=== PATIENT | male | born 1940 | race Caucasian/White ===

== ENCOUNTER 2017-04-04 16:16 | Inpatient (IN) | payer MEDICARE, OTHER ==
[~2017-04-04] VITALS: Ht 180.3 cm; Wt 69.2 kg
[2017-04-04] MEDS ORDERED: IV NORMAL SALINE 1000ML BAG 1,000 ML IV SCH (16:37)
[2017-04-04] MEDS ORDERED: ASPIRIN CHEWABLE 81 MG TABLET. PO ONE (16:45)
[2017-04-04] MEDS ORDERED: 0.9 % SODIUM CHLORIDE 10 ML DISP.SYRIN. IV PRN (16:45)
[2017-04-04 16:52] LABS: BASO # 0.1 x10^3/uL (0.0-0.2); BASO % 1 % (0-3); EOS % 1 % (0-3); HEMATOCRIT 36.9 % (39.0-53.0); HEMOGLOBIN 12.3 g/dL (13.0-17.5); LYMPH # 1.8 x10^3/uL (1.0-4.8); LYMPH % 28 % (24-48); MEAN CORPUSCULAR HEMOGLOBIN 29 pg (25-35); MEAN CORPUSCULAR HGB CONC 33 g/dL (31-37); MEAN CORPUSCULAR VOLUME 86 fL (79-100); MONO % 10 % (0-9); NEUT % 59 % (31-73); PLATELET COUNT 297 x10^3/uL (140-400); RED BLOOD COUNT 4.31 x10^6/uL (4.30-5.70); WHITE BLOOD COUNT 6.4 x10^3/uL (4.0-11.0)
--- NOTE | 2017-04-04 16:58 | RAD ---
INDICATION: sob on exertion COMPARISON: 11/03/2010 FINDINGS: Single view of chest obtained. Coarsened lung markings throughout the bilateral lungs. Possible nodular opacity in the right midlung versus overlap of structures. Post sternotomy changes with surgical clips seen at mediastinum. Degenerative changes shoulders. IMPRESSION: No definite focal airspace consolidation. Coarsened lung markings bilaterally. Would correlate for possible causes such as emphysema. Possible nodular opacity in the right perihilar region. Could be secondary to overlap of structures but a right lung nodule is not excluded. Follow-up CT could better evaluate.
--- NOTE | 2017-04-04 17:12 | RAD ---
INDICATION: generalized weakness COMPARISON: None. TECHNIQUE: Axial CT images obtained through the head without intravenous contrast. FINDINGS: No intracranial hemorrhage. No midline shift. Basal cisterns patents. Ventricles and sulci are globally prominent. Mays white differentiation is maintained without evidence of acute ischemia to large vessel territory. No acute osseous abnormality. Orbits and paranasal sinuses unremarkable. Scattered foci of low attenuation within the white matter. IMPRESSION: 1. No acute intracranial hemorrhage. 2. Scattered regions of low attenuation within the white matter. Non-specific in nature but frequently secondary to chronic small vessel ischemic disease. 3. Prominence of ventricles and sulci which is frequently secondary to age related volume loss. PQRS Compliance Statement: One or more of the following individualized dose reduction techniques were utilized for this examination: 1. Automated exposure control 2. Adjustment of the mA and/or kV according to patient size 3. Use of iterative reconstruction technique
[2017-04-04 17:18] LABS: CREATININE 1.4 mg/dL (0.7-1.3); GFR 49.3; POTASSIUM 4.1 mmol/L (3.5-5.1)
[2017-04-04 17:24] LABS: ALBUMIN 2.6 g/dL (3.4-5.0); DIRECT BILIRUBIN 0.1 mg/dL (0.0-0.2); MAGNESIUM 1.5 mg/dL (1.8-2.4); TOTAL BILIRUBIN 0.7 mg/dL (0.2-1.0); TOTAL PROTEIN 6.9 g/dL (6.4-8.2)
[2017-04-04 17:33] LABS: CKMB MASS 0.7 ng/mL (0.0-3.6)
--- NOTE | 2017-04-04 17:48 | PHYS DOC ---
Past Medical History Past Medical History: CAD, GERD, Hypertension Past Surgical History: Cholecystectomy, Coronary Bypass Surgery, Tonsillectomy , Other Additional Past Surgical Histo: Shoulder Alcohol Use: None Drug Use: None Adult General Chief Complaint Chief Complaint: DIZZY/LIGHT HEADED HPI HPI Is a pleasant 76 showed male with history of coronary artery disease, hypertension, hyperlipidemia who presents with increased shortness of breath exertional dyspnea is affected more last several days. Is been having decreased energy for last several weeks decreased appetite for the last several weeks as well with decreased oral intake. Son is presently going away for approximately 3 months and he feels that with this increased shortness of breath and increased weakness with inability care of himself. He is worried that this shortness of breath has made it so that he cannot even perform activities of daily living. He has chest tightness when he exerts himself. 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 He denies lower leg swelling, change in medications, night sweats, weight loss, other than the 5 pounds secondary to decreased oral intake. Review of Systems Review of Systems Constitutional: Denies fever or chills [] Eyes: Denies change in visual acuity, redness, or eye pain [] HENT: Denies nasal congestion or sore throat [] Respiratory: Denies cough or shortness of breath [] Cardiovascular: No additional information not addressed in HPI [] GI: Denies abdominal pain, nausea, vomiting, bloody stools or diarrhea [] : Denies dysuria or hematuria [] Musculoskeletal: Denies back pain or joint pain [] Integument: Denies rash or skin lesions [] Neurologic: Denies headache, focal weakness or sensory changes [] Endocrine: Denies polyuria or polydipsia [] Current Medications Current Medications Current Medications Medications (Trade) Dose Ordered Sig/Chari Start Time Stop Time Status Last Admin Dose Admin Aspirin (Children'S Aspirin) 324 mg 1X ONCE 04/04/17 16:45 04/04/17 16:46 DC 04/04/17 16:59 324 MG Sodium Chloride (Normal Saline Flush) 10 ml QSHIFT PRN 04/04/17 16:45 04/04/17 16:59 10 ML Allergies Allergies Allergies Coded Allergies Type Severity Reaction Last Updated Verified No Known Drug Allergies 12/7/15 No Physical Exam Physical Exam Constitutional: Well developed, well nourished, no acute distress, non-toxic appearance. [] HENT: Normocephalic, atraumatic, bilateral external ears normal, oropharynx moist, no oral exudates, nose normal. [] Eyes: PERRLA, EOMI, conjunctiva normal, no discharge. [] Neck: Normal range of motion, no tenderness, supple, no stridor. [] Cardiovascular:Heart rate regular rhythm, no murmur [] Lungs & Thorax: Bilateral breath sounds clear to auscultation [] Abdomen: Bowel sounds normal, soft, no tenderness, no masses, no pulsatile masses. [] Skin: Warm, dry, no erythema, no rash. [] Back: No tenderness, no CVA tenderness. [] Extremities: No tenderness, no cyanosis, no clubbing, ROM intact, no edema. [] Neurologic: Alert and oriented X 3, normal motor function, normal sensory function, no focal deficits noted. [] Psychologic: Affect normal, judgement normal, mood normal. [] Current Patient Data Vital Signs Vital Signs Date Time Temp Pulse Resp B/P (MAP) Pulse Ox O2 Delivery O2 Flow Rate FiO2 04/04/17 16:59 101 177/101 (126) 95 Room Air 04/04/17 16:20 98.4 18 98.4 Lab Values Laboratory Tests Test 04/04/17 16:30 White Blood Count 6.4 x10^3/uL (4.0-11.0) Red Blood Count 4.31 x10^6/uL (4.30-5.70) Hemoglobin 12.3 g/dL (13.0-17.5) L Hematocrit 36.9 % (39.0-53.0) L Mean Corpuscular Volume 86 fL (79-100) Mean Corpuscular Hemoglobin 29 pg (25-35) Mean Corpuscular Hemoglobin Concent 33 g/dL (31-37) Red Cell Distribution Width 14.0 % (11.5-14.5) Platelet Count 297 x10^3/uL (140-400) Neutrophils (%) (Auto) 59 % (31-73) Lymphocytes (%) (Auto) 28 % (24-48) Monocytes (%) (Auto) 10 % (0-9) H Eosinophils (%) (Auto) 1 % (0-3) Basophils (%) (Auto) 1 % (0-3) Neutrophils # (Auto) 3.8 x10^3uL (1.8-7.7) Lymphocytes # (Auto) 1.8 x10^3/uL (1.0-4.8) Monocytes # (Auto) 0.7 x10^3/uL (0.0-1.1) Eosinophils # (Auto) 0.1 x10^3/uL (0.0-0.7) Basophils # (Auto) 0.1 x10^3/uL (0.0-0.2) Sodium Level 143 mmol/L (136-145) Potassium Level 4.1 mmol/L (3.5-5.1) Chloride Level 105 mmol/L (98-107) Carbon Dioxide Level 27 mmol/L (21-32) Anion Gap 11 (6-14) Blood Urea Nitrogen 13 mg/dL (8-26) Creatinine 1.4 mg/dL (0.7-1.3) H Estimated GFR (Cockcroft-Gault) 49.3 Glucose Level 104 mg/dL (70-99) H Calcium Level 9.0 mg/dL (8.5-10.1) Magnesium Level 1.5 mg/dL (1.8-2.4) L Total Bilirubin 0.7 mg/dL (0.2-1.0) Direct Bilirubin 0.1 mg/dL (0.0-0.2) Aspartate Amino Transferase (AST) 24 U/L (15-37) Alanine Aminotransferase (ALT) 15 U/L (16-63) L Alkaline Phosphatase 117 U/L (46-116) H Creatine Kinase 53 U/L (39-308) Creatine Kinase MB (Mass) 0.7 ng/mL (0.0-3.6) Creatine Kinase MB Relative Index 1.3 % (0-4) Troponin I Quantitative < 0.017 ng/mL (0.000-0.055) AM-Afk-A-Type Natriuretic Peptide 2204 pg/mL (0-449) H Total Protein 6.9 g/dL (6.4-8.2) Albumin 2.6 g/dL (3.4-5.0) L Thyroid Stimulating Hormone (TSH) 3.258 uIU/mL (0.358-3.74) Laboratory Tests 04/04/17 16:30 Laboratory Tests 04/04/17 16:30 EKG EKG [] KG timed 4:30 PM 04/04/2017 demonstrates sinus tachycardia rate of 102 CO interval 182 QRS of 86 QTC of 439. There is incomplete right bundle mass block noted in V1 and V2 there is a Q-wave noted in anterior leads and V3 this is an abnormal EKG. Read by Dr. toribio Radiology/Procedures Radiology/Procedures [] Course & Med Decision Making Course & Med Decision Making Pertinent Labs and Imaging studies reviewed. (See chart for details) I reviewed nursing notes, vital signs and history and physical findings. Initially presentation was concerning for possible increasing angina and his equivalent of angina his increasing dyspnea on exertion with activities of daily living. He will have an EKG completed, troponin CMP, CBC, mag level, TSH level, urinalysis, chest x-ray completed. Time is now 5 PM patient's troponin is negative, EKG is unremarkable except for sinus tachycardia which is likely secondary to find the patient. Patient's BUN/ creatinine are 13 and 1.4 which are both mildly elevated. Patient exam patient did exhibit some dehydration based on dry mucous membranes and tachycardia. He was given IV fluids as you can note is his high blood pressure and tachycardia. Vital Signs Date Time Temp Pulse Resp B/P (MAP) Pulse Ox O2 Delivery O2 Flow Rate FiO2 04/04/17 16:59 101 177/101 (126) 95 Room Air 04/04/17 16:20 98.4 18 98.4 Laboratory Tests Test 04/04/17 16:30 White Blood Count 6.4 x10^3/uL (4.0-11.0) Red Blood Count 4.31 x10^6/uL (4.30-5.70) Hemoglobin 12.3 g/dL (13.0-17.5) Hematocrit 36.9 % (39.0-53.0) Mean Corpuscular Volume 86 fL (79-100) Mean Corpuscular Hemoglobin 29 pg (25-35) Mean Corpuscular Hemoglobin Concent 33 g/dL (31-37) Red Cell Distribution Width 14.0 % (11.5-14.5) Platelet Count 297 x10^3/uL (140-400) Neutrophils (%) (Auto) 59 % (31-73) Lymphocytes (%) (Auto) 28 % (24-48) Monocytes (%) (Auto) 10 % (0-9) Eosinophils (%) (Auto) 1 % (0-3) Basophils (%) (Auto) 1 % (0-3) Neutrophils # (Auto) 3.8 x10^3uL (1.8-7.7) Lymphocytes # (Auto) 1.8 x10^3/uL (1.0-4.8) Monocytes # (Auto) 0.7 x10^3/uL (0.0-1.1) Eosinophils # (Auto) 0.1 x10^3/uL (0.0-0.7) Basophils # (Auto) 0.1 x10^3/uL (0.0-0.2) Sodium Level 143 mmol/L (136-145) Chloride Level 105 mmol/L (98-107) Carbon Dioxide Level 27 mmol/L (21-32) Anion Gap 11 (6-14) Blood Urea Nitrogen 13 mg/dL (8-26) Estimated GFR (Cockcroft-Gault) 49.3 Glucose Level 104 mg/dL (70-99) Calcium Level 9.0 mg/dL (8.5-10.1) Total Bilirubin 0.7 mg/dL (0.2-1.0) Direct Bilirubin 0.1 mg/dL (0.0-0.2) Aspartate Amino Transf (AST/SGOT) 24 U/L (15-37) Alkaline Phosphatase 117 U/L (46-116) Creatine Kinase 53 U/L (39-308) Creatine Kinase MB (Mass) 0.7 ng/mL (0.0-3.6) Creatine Kinase MB Relative Index 1.3 % (0-4) Troponin I Quantitative < 0.017 ng/mL (0.000-0.055) Total Protein 6.9 g/dL (6.4-8.2) Albumin 2.6 g/dL (3.4-5.0) [] I'm is now 5:53 PM patient had his habits done in 1996 his had no interventions no cardiology evaluation since that time. At this time I will push for admission to the hospital to rule out and rule out LA and cardiology evaluation. Setter Helper note: Internal Medicine Setter Helper called at of the service 5:53 pm Consult called back at Discussed the case I presented and they agreed with admission. Time of acceptance Dragon Disclaimer Dragon Disclaimer This electronic medical record was generated, in whole or in part, using a voice recognition dictation system. Departure Departure Impression: Primary Impression: Dyspnea Additional Impression: Weakness Disposition: ADMITTED INPATIENT Admitting Physician: Other Condition: GUARDED Referrals: DEMAR CHU Jr, MD (PCP) Problem Qualifiers STACIA TORIBIO MD Apr 04, 2017 17:48
[2017-04-04] MEDS ORDERED: fentaNYL PF VIAL 100 MCG/2 ML VIAL IV PRN (18:00)
[2017-04-04] MEDS ORDERED: ONDANSETRON PF 4 MG/2 ML VIAL. IV PRN (18:00)
[2017-04-04 18:14] LABS: BILIRUBIN,URINE NEGATIVE (NEG); GLUCOSE,URINE NEGATIVE (NEG); NITRITE,URINE NEGATIVE (NEG); PROTEIN,URINE NEGATIVE (NEG-TRACE); UROBILINOGEN,URINE 0.2 mg/dL (0.2 mg/dL)
[2017-04-04 18:35] LABS: BACTERIA,URINE MODERATE /HPF (0-FEW); RBC,URINE 0 /HPF (0-2); SQUAMOUS EPITHELIAL CELL,UR OCC /LPF; WBC,URINE >40 /HPF (0-4)
[2017-04-04 19:57] VITALS: BP 184/117
[2017-04-04] MEDS ORDERED: TAMS0.4C2 PO (20:50)
[2017-04-04] MEDS ORDERED: ASPI-482 PO (20:50)
[2017-04-04] MEDS ORDERED: LOSA50TA6 PO (20:50)
[2017-04-04] MEDS ORDERED: BUDE10.2 IH (20:50)
[2017-04-04] MEDS ORDERED: AMLO5TAB2 PO (20:50)
[2017-04-04] MEDS ORDERED: OXYB5TAB7 PO (20:50)
[2017-04-04] MEDS ORDERED: OMEP20TA8 PO (20:50)
[2017-04-04] MEDS ORDERED: IPRA4AER IH (20:50)
[2017-04-04] MEDS ORDERED: METO50TA2 PO (20:50)
[2017-04-04] MEDS ORDERED: FINA5TAB4 PO (20:50)
[2017-04-04] MEDS: IV NORMAL SALINE 1000ML BAG 1,000 ML IV SCH (21:02)
[2017-04-04] MEDS ORDERED: hydrALAZINE 20 MG/ML VIAL. IVP PRN (22:15)
[2017-04-04] MEDS ORDERED: NON FORMULARY ITEM (Ipratropium/Albuterol Sulfate (Combivent Respimat Inhal) 2 INH) IH PRN (22:15)
[2017-04-04] MEDS ORDERED: ALBUTEROL SULFATE 2.5 MG/3 ML NEBU. NEB PRN (22:30)
[2017-04-04 22:46] VITALS: BP 171/102
--- NOTE | 2017-04-04 23:03 | HP ---
ADMIT DATE: 04/04/2017 CHIEF COMPLAINT: Dizziness, dyspnea on exertion and generalized weakness. HISTORY OF PRESENT ILLNESS: The patient is a 76-year-old gentleman with past medical history of CAD, hypertension, hyperlipidemia as well as adult-onset asthma, who presented to the Emergency Room with decreased energy, easy fatigue as well as mildly worsened dyspnea on exertion. He specifically denies any chest pain, any cough, any fevers. He does have a recent history significant for C. diff colitis, for which he had seen his primary care physician at the beginning of the month. He had complained of watery diarrhea, foul smelling multiple times a day. He eventually was diagnosed with C. diff and started on antibiotics for 10 days. He completed his regimen about 1 week ago and actually has had fairly normal bowel movement since. However, he has been unable to eat properly since the beginning of the month, because of poor appetite. He denies any nausea. P.o. intake has been significantly decreased. He felt that he was probably dehydrated and therefore presented to the Emergency Room. PAST MEDICAL HISTORY: CAD status post CABG in 1996, hypertension and hyperlipidemia. FAMILY HISTORY: Noncontributory. SOCIAL HISTORY: Lives by himself, never smoked. No toxic habits. ALLERGIES: No known drug allergies. HOME MEDICATIONS: Reconciled with MAR. REVIEW OF SYSTEMS: Positive as per HPI. He denies any focal symptoms in rest of organ system review. PHYSICAL EXAMINATION: VITAL SIGNS: From today show blood pressure of 184/117, pulse rate at 90, respiratory rate at 18. He is afebrile. GENERAL: This is a 76-year-old well-nourished, well-developed gentleman, alert and oriented, in no acute distress. HEENT: Shows no scleral icterus. NECK: Supple. LUNGS: Fairly clear bilaterally. HEART: Mildly tachycardic. ABDOMEN: Has positive bowel sounds, soft, no tenderness to palpation in all 4 quadrants. EXTREMITIES: Show no edema. SKIN: Warm, soft and dry. LABORATORY DATA: CBC with WBC of 6.4, hemoglobin 12.3, platelets of 297. BUN and creatinine of 13 and 1.4. Normal electrolytes, normal LFTs. ProBNP at 2204. Negative troponin. TSH at 3.258. Urine was showing infection with wbc greater than 40. IMAGING STUDIES: A chest x-ray showing coarsened lung markings bilaterally, possible causes such as emphysema. ASSESSMENT AND PLAN: The patient is a 76-year-old gentleman with past medical history of coronary artery disease, who presenting to the Emergency Room with generalized weakness, possible dehydration and was found with hypertensive urgency. He is now admitted to the hospital for further workup. For his blood pressure, we will start hydralazine NATHAN to get this under control. His home medications will be continued. His proBNP is significantly elevated, possibly indicating congestive heart failure. He does have a history of coronary artery disease. We will obtain echocardiogram and cardiac consult. The patient has a recent history of clostridium difficile, which apparently has been treated sufficiently. He is no longer symptomatic. We will place on isolation. No further stool studies are indicated. Despite proBNP being elevated, there is no sign of fluid overload, on the contrary suspect he is dehydrated. We will gently rehydrate and monitor his chemistries closely. His electrolytes currently are within normal limits. The patient clearly has a urinary tract infection. We will await culture and start empiric ceftriaxone certainly could be the etiology of his generalized weakness as well. For prophylaxis, he will be started on heparin subQ. MARILEE BLAS MD DR: PHUONG/nts JOB#: [id number] / [id number] DEMAR Martins MD MTDLily
[2017-04-05] VITALS (7 sets, daily range): BP systolic 122–192; BP diastolic 68–110
--- NOTE | 2017-04-05 05:36 | ACF ---
Admission Forms Criteria HEART FAILURE: COMMON COMPLICATIONS (Place 'X' for any and all applicable criteria): Ongoing inpatient care may be indicated for heart failure with 1 or more of the following (1)(2)(3)(4)(5)(6)(7)(8): [ ]I. New-onset heart failure [ ]II. Acute cardiac ischemia causing or associated with failure [ ]III. Ongoing need for care for primary condition requiring frequent therapy adjustments because of changes in cardiac function (eg, drug dosage changes for drugs that are renally metabolized) [X]IV. Complications of heart failure, including 1 or more of the following: [ ]a) Hemodynamic instability [ ]b) Pericardial effusion [ ]c) Symptomatic pleural effusion [ ]d) Hypoxemia [ ]e) Tachypnea [X]f) Dyspnea [ ]g) Syncope [ ]h) Altered mental status [ ]i) Acute renal insufficiency that is severe (reduction of more than 50% in estimated glomerular filtration rate from baseline) or progressive reduction of more than 25% in estimated glomerular filtration rate from baseline, with creatinine continuing to rise) [ ]j) Debilitating anasarca (eg tissue breakdown with infection, inability to void due to edema) (E) [ ]k) Clinically significant metabolic abnormalities due to heart failure (eg, new-onset metabolic acidosis) Extended stay may be needed until ALL of the following are present (1)(3)(18)(41 )(55) [ ]a) Hemodynamic stability [ ]b) Stable and effective diuretic regimen established (or patient on stable dialysis regimen if in chronic renal failure) [ ]c) Volume status acceptable on oral medication [ ]d) Breathing comfortably at rest [ ]e) Saturation of arterial oxygen greater than 90% or at acceptable baseline [ ]f) Pulmonary edema absent or improved [ ]g) Peripheral or sacral edema absent or improved [ ]h) Renal function stable and manageable at a lower level of care [ ]i) Complications (eg, pleural effusion) resolved or manageable at a lower level of care [ ]g) Patient or caregiver has received written discharge instructions or educational material addressing activity level, diet, discharge medications, follow-up appointment, weight monitoring, and what to do if symptoms worsen.(25)(26) The original [employer] [facility] [employer] content created by Arvin [employer] has been revised. The portions of the content which have been revised are identified through the use of italic text, and [facility] has neither reviewed nor approved the modified material.All other unmodified content is copyright [facility]. Please see references footnoted in the original [facility] edition 2015 Admission Criteria Met?: Yes LORY JONES Apr 05, 2017 05:36
[2017-04-05] MEDS: IPRATRPIUM/ALBUTEROL 0.5/2.5MG 3 ML NEBU. NEB SCH ×4 (05:59→19:16)
[2017-04-05 06:00] LABS: BASO # 0.1 x10^3/uL (0.0-0.2); BASO % 1 % (0-3); EOS % 1 % (0-3); HEMOGLOBIN 12.7 g/dL (13.0-17.5); LYMPH # 2.2 x10^3/uL (1.0-4.8); LYMPH % 20 % (24-48); MEAN CORPUSCULAR HEMOGLOBIN 28 pg (25-35); MEAN CORPUSCULAR HGB CONC 33 g/dL (31-37); MEAN CORPUSCULAR VOLUME 87 fL (79-100); MONO % 9 % (0-9); NEUT % 69 % (31-73); PLATELET COUNT 298 x10^3/uL (140-400); RED BLOOD COUNT 4.51 x10^6/uL (4.30-5.70); RED CELL DISTRIBUTION WIDTH 14.1 % (11.5-14.5); WHITE BLOOD COUNT 10.9 x10^3/uL (4.0-11.0)
[2017-04-05] MEDS: BUDESONIDE 0.5 MG/2 ML NEBU. NEB SCH ×2 (06:00→19:16)
[2017-04-05 06:02] LABS: CALCIUM 8.2 mg/dL (8.5-10.1); CREATININE 1.4 mg/dL (0.7-1.3); GFR 49.3; POTASSIUM 3.9 mmol/L (3.5-5.1)
[2017-04-05] MEDS: IV NORMAL SALINE 1000ML BAG 1,000 ML IV SCH (07:22)
--- NOTE | 2017-04-05 07:32 | EKG ---
[facility] [address] [place] [address] Test Date: 2017-04-04 Test Time: 16:30:33 Pat Name: GEMMA CANO Department: Room: Gender: M Mottler Machine Feeder: : 1940 Requested By: STACIA TORIBIO Order Number: [id number] Reading MD: Measurements Intervals [place] Rate: 102 P: 10 SD: 182 QRS: 0 QRSD: 86 T: 25 QT: 334 QTc: 439 Interpretive Statements SINUS TACHYCARDIA LEFTWARD AXIS INCOMPLETE RIGHT BUNDLE BRANCH BLOCK QRS(T) CONTOUR ABNORMALITY CONSISTENT WITH ANTEROSEPTAL INFARCT AGE UNDETERMINED CONSISTENT WITH INFERIOR INFARCT PROBABLY OLD RI6.01 Unconfirmed report No previous ECG available for comparison
[2017-04-05] MEDS: PANTOPRAZOLE 40 MG TABLET.DR. PO SCH (08:27)
[2017-04-05] MEDS: FINASTERIDE 5 MG TABLET. PO SCH (08:27)
[2017-04-05] MEDS: OXYBUTYNIN CHLORIDE 5 MG TABLET PO SCH (08:28)
[2017-04-05] MEDS: METOPROLOL TART IMMED RELEASE 50 MG TABLET. PO SCH ×2 (08:28→22:12)
[2017-04-05] MEDS: LOSARTAN POTASSIUM 50 MG TABLET. PO SCH (08:28)
[2017-04-05] MEDS: TAMSULOSIN 0.4 MG CAP.ER.24H. PO SCH (08:29)
[2017-04-05] MEDS: amLODIPine BESYLATE 5 MG TABLET PO SCH (08:29)
[2017-04-05] MEDS: ASPIRIN ENTERIC COATED 81 MG TABLET.DR. PO SCH (08:29)
--- NOTE | 2017-04-05 08:38 | PDOC2 ---
DEEPALI SHARPE HOUSEHOLD MANAGER 04/05/17 0838: CARDIAC CONSULT DATE OF CONSULT Date of Consult DATE: 04/05/17 TIME: 08:35 REASON FOR CONSULT Reason for Consult: exertional dyspnea REFERRING PHYSICIAN Referring Physician: Rob SOURCE Source: Chart review, Patient HISTORY OF PRESENT ILLNESS HISTORY OF PRESENT ILLNESS This is a pleasant 76 yo male admitted for complains of SOA with exertion. Reports that about 3 weeks ago he was treated with antibiotics due to colitis. He finished his antibiotics but after that he has been feeling weak, more fatigue. No SOA with rest but increasingly with activity. His activity tolerance has decreased and he has been having intermittent nausea. His appetite has been decreased and because of these he has not been taking his medications routinely. In the last week he only has taken his medications for total of 3 days. Denies any CP, palpitations. He did fall yesterday in the bathroom but sustained no injury after turning around to fast he got a little dizzy. He has been having all these symptoms and it has not been improving so he decided to come in to ED. He does have CAD but has not followed up with any grey roll man for years and has been bascically managed by his PCP. 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 Endocrine: No pertinent hx Dermatology: No pertinent hx PAST SURGICAL HISTORY Past Surgical History: CABG (x4 in 1996), Hernia Repair (right inguinal) FAMILY HISTORY Family History: Coronary Artery Disease (father) SOCIAL HISTORY Smoke: No ALCOHOL: none Drugs: None Lives: Alone CURRENT MEDICATIONS CURRENT MEDICATIONS Current Medications Medications (Trade) Dose Ordered Sig/Chari Route PRN Reason Start Time Stop Time Status Last Admin Dose Admin Aspirin (Children'S Aspirin) 324 mg 1X ONCE PO 04/04/17 16:45 04/04/17 16:46 DC 04/04/17 16:59 Sodium Chloride 1,000 ml @ 1,000 mls/hr Q1H IV 04/04/17 16:37 04/04/17 17:36 DC 04/04/17 16:59 Sodium Chloride (Normal Saline Flush) 10 ml QSHIFT PRN IV AFTER MEDS AND BLOOD DRAWS 04/04/17 16:45 04/04/17 16:59 Sodium Chloride 1,000 ml @ 100 mls/hr Q10H IV 04/04/17 18:15 04/05/17 18:14 04/05/17 07:22 Amlodipine Besylate (Norvasc) 5 mg DAILY PO 04/05/17 09:00 04/05/17 08:29 Aspirin (Ecotrin) 81 mg DAILY PO 04/05/17 09:00 04/05/17 08:29 Finasteride (Proscar) 5 mg DAILY PO 04/05/17 09:00 04/05/17 08:27 Losartan Potassium (Cozaar) 50 mg DAILY PO 04/05/17 09:00 04/05/17 08:28 Metoprolol Tartrate (Lopressor) 50 mg BID PO 04/05/17 09:00 04/05/17 08:28 Oxybutynin Chloride (Ditropan) 5 mg DAILY PO 04/05/17 09:00 04/05/17 08:28 Tamsulosin HCl (Flomax) 0.8 mg DAILY PO 04/05/17 09:00 04/05/17 08:29 Pantoprazole Sodium (Protonix) 40 mg DAILYAC PO 04/05/17 07:30 04/05/17 08:27 Hydralazine HCl (Apresoline) 10 mg PRN Q4HRS PRN IVP ELEVATED BP, SEE COMMENTS 04/04/17 22:15 04/05/17 04:32 Ceftriaxone Sodium 1 gm/ Sodium Chloride 50 ml @ 100 mls/hr Q24H IV 04/04/17 23:00 04/05/17 00:05 Albuterol/ Ipratropium (Duoneb) 3 ml RTQID NEB 04/05/17 08:00 04/05/17 05:59 Budesonide (Pulmicort) 0.5 mg RTBID NEB 04/05/17 08:00 04/05/17 06:00 ALLERGIES ALLERGIES: Coded Allergies: No Known Drug Allergies (Unverified , 08/21/15) ROS Review of System 14 point ROS evaluated with pertinent positives noted per HPI PHYSICAL EXAM General: Alert, Oriented X3, Cooperative, No acute distress HEENT: Atraumatic, Mucous membr. moist/pink Lungs: Other (faint crackles to bases) Heart: Regular rate (Sinus tach), Normal S1, Normal S2, Other (S4; systolic murmur to LLS border 3/6) Abdomen: Soft, Other (hyperactive bowel sounds to all quads) Extremities: No cyanosis, No edema Skin: No breakdown, No significant lesion Neuro: Normal speech, Sensation intact Psych/Mental Status: Mental status NL, Mood NL MUSCULOSKELETAL: Osteoarthritic changes both hands VITALS VITALS Vital Signs Date Time Temp Pulse Resp B/P (MAP) Pulse Ox O2 Delivery O2 Flow Rate FiO2 04/05/17 08:29 138 161/107 04/05/17 07:21 97.6 18 96 Room Air 97.6 LABS Lab: Laboratory Tests Test 04/04/17 16:30 04/04/17 18:00 04/04/17 21:00 04/05/17 04:30 White Blood Count 6.4 x10^3/uL (4.0-11.0) 10.9 x10^3/uL (4.0-11.0) Red Blood Count 4.31 x10^6/uL (4.30-5.70) 4.51 x10^6/uL (4.30-5.70) Hemoglobin 12.3 g/dL (13.0-17.5) 12.7 g/dL (13.0-17.5) Hematocrit 36.9 % (39.0-53.0) 39.0 % (39.0-53.0) Mean Corpuscular Volume 86 fL (79-100) 87 fL (79-100) Mean Corpuscular Hemoglobin 29 pg (25-35) 28 pg (25-35) Mean Corpuscular Hemoglobin Concent 33 g/dL (31-37) 33 g/dL (31-37) Red Cell Distribution Width 14.0 % (11.5-14.5) 14.1 % (11.5-14.5) Platelet Count 297 x10^3/uL (140-400) 298 x10^3/uL (140-400) Neutrophils (%) (Auto) 59 % (31-73) 69 % (31-73) Lymphocytes (%) (Auto) 28 % (24-48) 20 % (24-48) Monocytes (%) (Auto) 10 % (0-9) 9 % (0-9) Eosinophils (%) (Auto) 1 % (0-3) 1 % (0-3) Basophils (%) (Auto) 1 % (0-3) 1 % (0-3) Neutrophils # (Auto) 3.8 x10^3uL (1.8-7.7) 7.5 x10^3uL (1.8-7.7) Lymphocytes # (Auto) 1.8 x10^3/uL (1.0-4.8) 2.2 x10^3/uL (1.0-4.8) Monocytes # (Auto) 0.7 x10^3/uL (0.0-1.1) 1.0 x10^3/uL (0.0-1.1) Eosinophils # (Auto) 0.1 x10^3/uL (0.0-0.7) 0.1 x10^3/uL (0.0-0.7) Basophils # (Auto) 0.1 x10^3/uL (0.0-0.2) 0.1 x10^3/uL (0.0-0.2) Sodium Level 143 mmol/L (136-145) 149 mmol/L (136-145) Potassium Level 4.1 mmol/L (3.5-5.1) 3.9 mmol/L (3.5-5.1) Chloride Level 105 mmol/L (98-107) 108 mmol/L (98-107) Carbon Dioxide Level 27 mmol/L (21-32) 30 mmol/L (21-32) Anion Gap 11 (6-14) 11 (6-14) Blood Urea Nitrogen 13 mg/dL (8-26) 12 mg/dL (8-26) Creatinine 1.4 mg/dL (0.7-1.3) 1.4 mg/dL (0.7-1.3) Estimated GFR (Cockcroft-Gault) 49.3 49.3 Glucose Level 104 mg/dL (70-99) 94 mg/dL (70-99) Calcium Level 9.0 mg/dL (8.5-10.1) 8.2 mg/dL (8.5-10.1) Magnesium Level 1.5 mg/dL (1.8-2.4) Total Bilirubin 0.7 mg/dL (0.2-1.0) Direct Bilirubin 0.1 mg/dL (0.0-0.2) Aspartate Amino Transf (AST/SGOT) 24 U/L (15-37) Alanine Aminotransferase (ALT/SGPT) 15 U/L (16-63) Alkaline Phosphatase 117 U/L (46-116) Creatine Kinase 53 U/L (39-308) Creatine Kinase MB (Mass) 0.7 ng/mL (0.0-3.6) Creatine Kinase MB Relative Index 1.3 % (0-4) Troponin I Quantitative < 0.017 ng/mL (0.000-0.055) < 0.017 ng/mL (0.000-0.055) GF-Law-U-Type Natriuretic Peptide 2204 pg/mL (0-449) Total Protein 6.9 g/dL (6.4-8.2) Albumin 2.6 g/dL (3.4-5.0) Thyroid Stimulating Hormone (TSH) 3.258 uIU/mL (0.358-3.74) Urine Collection Type Unknown Urine Color Yellow Urine Clarity Cloudy Urine pH 6.0 Urine Specific [place] <=1.005 Urine Protein Negative mg/dL (NEG-TRACE) Urine Glucose (UA) Negative mg/dL (NEG) Urine Ketones (Stick) Negative mg/dL (NEG) Urine Blood Trace (NEG) Urine Nitrite Negative (NEG) Urine Bilirubin Negative (NEG) Urine Urobilinogen Dipstick 0.2 mg/dL (0.2 mg/dL) Urine Leukocyte Esterase Large (NEG) Urine RBC 0 /HPF (0-2) Urine WBC >40 /HPF (0-4) Urine Squamous Epithelial Cells Occ /LPF Urine Bacteria Moderate /HPF (0-FEW) Test 04/05/17 05:55 Troponin I Quantitative 0.021 ng/mL (0.000-0.055) ASSESSMENT/PLAN ASSESSMENT/PLAN 1. Exertional dyspnea/fatigue: multifactorial 2. Accelerated HTN: due to missed meds 3. COPD: appears to be occupational related 4. BPH with possible UTI 5. Recent colitis 6. GERD 7. CAD: CABG x4 1996. No cardiac w/u since then. 8. Nontraumatic mechanical fall: possible BPPV Recommendations 1. TTE tomorrow. Monitor rhythm. Will consider MPI once nausea is better 2. Resume home BP meds including BB. Labetolol IV PRN. 3. Replace Mg if low 4. Lipid panel. Problems: DRAKE FINK MD 04/05/17 1357: CARDIAC CONSULT ALLERGIES ALLERGIES: Coded Allergies: No Known Drug Allergies (Unverified , 08/21/15) ASSESSMENT/PLAN ASSESSMENT/PLAN Pt. seen and examined. Agree with above PET SITTER Note. Normal cardiac exam. Presenting with exertional dyspnea. DDx is broad. Remote bypass, no assessment since then plan for MPI tomorrow if GI issues stable. Thanks for consult. Problems: DEEPALI SHARPE APRN Apr 05, 2017 08:38 DRAKE FINK MD Apr 05, 2017 13:57
[2017-04-05] MEDS ORDERED: NON FORMULARY ITEM (Budesonide/Formoterol Fumarate (Symbicort 160-4.5 Mcg Inhaler) 2 PUFF) IH SCH (09:00)
[2017-04-05 09:24] LABS: CHOLESTEROL/HDL RATIO 3.2; MAGNESIUM 1.6 mg/dL (1.8-2.4)
[2017-04-05] MEDS ORDERED: MAGNESIUM SULFATE 2GM 50 ML IV ONE (11:00)
--- NOTE | 2017-04-05 11:06 | EKG ---
[facility] [address] [place] [address] Test Date: 2017-04-05 Test Time: 09:57:27 Pat Name: GEMMA CANO Department: Room: [facility] Gender: M Contact Acid Plant Operator: LEILA : 1940 Requested By: DEEPALI SHARPE Order Number: [id number] Reading MD: Elio Giles Measurements Intervals [place] Rate: 99 P: 31 CA: 182 QRS: -5 QRSD: 86 T: 34 QT: 350 QTc: 455 Interpretive Statements SINUS RHYTHM POSSIBLE PRIOR INFERIOR INFARCT Electronically Signed On 04-10-2017 14:36:52 CDT by Elio Giles
--- NOTE | 2017-04-05 13:26 | PDOC ---
PROGRESS NOTES Chief Complaint Chief Complaint Fatigue, malaise Exertional dyspnea ASSESSMENT AND PLAN: 1. Gen weakness: UTI and dehydration. 2. HTN urgency: much better controlled this AM. cont home meds 3. Exertional dyspnea: poss cardiac, given PMH. appreciate cardiology service input: planned echo in AM. emphysematous changes on CXR in never-smoker: ?environmental vs antitrypsin deficiency. cont inhalers 4. CAD: Hx CABG in 1996. no acute issues. cont home meds 5. Infectious colitis: prob C.diff. completed Abx with resolution of sx. remains on isolation in hospital 6. Dehydration: gentle IVF 7. Hypomagnesemia: replete 8. CKD3: creat stable. monitor 9. UTI: on empiric ceftriax. awaiting cultures 10. GERD: on PPI 11. History of Present Illness History of Present Illness appetite still poor, but feels better overall. no CP Vitals Vitals Vital Signs Date Time Temp Pulse Resp B/P (MAP) Pulse Ox O2 Delivery O2 Flow Rate FiO2 04/05/17 11:39 95 Room Air 04/05/17 11:31 97.6 96 18 133/77 (95) 97.6 Physical Exam General: Alert, Oriented X3, Cooperative, No acute distress Heart: Regular rate, Other (systolic murmur ) Abdomen: Soft, Other (hyperactive bowel sounds ) Extremities: No cyanosis, No edema Skin: No breakdown, No significant lesion Labs LABS Laboratory Tests Test 04/04/17 16:30 04/04/17 18:00 04/04/17 21:00 04/05/17 04:30 White Blood Count 6.4 x10^3/uL (4.0-11.0) 10.9 x10^3/uL (4.0-11.0) Red Blood Count 4.31 x10^6/uL (4.30-5.70) 4.51 x10^6/uL (4.30-5.70) Hemoglobin 12.3 g/dL (13.0-17.5) 12.7 g/dL (13.0-17.5) Hematocrit 36.9 % (39.0-53.0) 39.0 % (39.0-53.0) Mean Corpuscular Volume 86 fL (79-100) 87 fL (79-100) Mean Corpuscular Hemoglobin 29 pg (25-35) 28 pg (25-35) Mean Corpuscular Hemoglobin Concent 33 g/dL (31-37) 33 g/dL (31-37) Red Cell Distribution Width 14.0 % (11.5-14.5) 14.1 % (11.5-14.5) Platelet Count 297 x10^3/uL (140-400) 298 x10^3/uL (140-400) Neutrophils (%) (Auto) 59 % (31-73) 69 % (31-73) Lymphocytes (%) (Auto) 28 % (24-48) 20 % (24-48) Monocytes (%) (Auto) 10 % (0-9) 9 % (0-9) Eosinophils (%) (Auto) 1 % (0-3) 1 % (0-3) Basophils (%) (Auto) 1 % (0-3) 1 % (0-3) Neutrophils # (Auto) 3.8 x10^3uL (1.8-7.7) 7.5 x10^3uL (1.8-7.7) Lymphocytes # (Auto) 1.8 x10^3/uL (1.0-4.8) 2.2 x10^3/uL (1.0-4.8) Monocytes # (Auto) 0.7 x10^3/uL (0.0-1.1) 1.0 x10^3/uL (0.0-1.1) Eosinophils # (Auto) 0.1 x10^3/uL (0.0-0.7) 0.1 x10^3/uL (0.0-0.7) Basophils # (Auto) 0.1 x10^3/uL (0.0-0.2) 0.1 x10^3/uL (0.0-0.2) Sodium Level 143 mmol/L (136-145) 149 mmol/L (136-145) Potassium Level 4.1 mmol/L (3.5-5.1) 3.9 mmol/L (3.5-5.1) Chloride Level 105 mmol/L (98-107) 108 mmol/L (98-107) Carbon Dioxide Level 27 mmol/L (21-32) 30 mmol/L (21-32) Anion Gap 11 (6-14) 11 (6-14) Blood Urea Nitrogen 13 mg/dL (8-26) 12 mg/dL (8-26) Creatinine 1.4 mg/dL (0.7-1.3) 1.4 mg/dL (0.7-1.3) Estimated GFR (Cockcroft-Gault) 49.3 49.3 Glucose Level 104 mg/dL (70-99) 94 mg/dL (70-99) Calcium Level 9.0 mg/dL (8.5-10.1) 8.2 mg/dL (8.5-10.1) Magnesium Level 1.5 mg/dL (1.8-2.4) 1.6 mg/dL (1.8-2.4) Total Bilirubin 0.7 mg/dL (0.2-1.0) Direct Bilirubin 0.1 mg/dL (0.0-0.2) Aspartate Amino Transf (AST/SGOT) 24 U/L (15-37) Alanine Aminotransferase (ALT/SGPT) 15 U/L (16-63) Alkaline Phosphatase 117 U/L (46-116) Creatine Kinase 53 U/L (39-308) Creatine Kinase MB (Mass) 0.7 ng/mL (0.0-3.6) Creatine Kinase MB Relative Index 1.3 % (0-4) Troponin I Quantitative < 0.017 ng/mL (0.000-0.055) < 0.017 ng/mL (0.000-0.055) QN-Llb-D-Type Natriuretic Peptide 2204 pg/mL (0-449) Total Protein 6.9 g/dL (6.4-8.2) Albumin 2.6 g/dL (3.4-5.0) Thyroid Stimulating Hormone (TSH) 3.258 uIU/mL (0.358-3.74) Urine Collection Type Unknown Urine Color Yellow Urine Clarity Cloudy Urine pH 6.0 Urine Specific [place] <=1.005 Urine Protein Negative mg/dL (NEG-TRACE) Urine Glucose (UA) Negative mg/dL (NEG) Urine Ketones (Stick) Negative mg/dL (NEG) Urine Blood Trace (NEG) Urine Nitrite Negative (NEG) Urine Bilirubin Negative (NEG) Urine Urobilinogen Dipstick 0.2 mg/dL (0.2 mg/dL) Urine Leukocyte Esterase Large (NEG) Urine RBC 0 /HPF (0-2) Urine WBC >40 /HPF (0-4) Urine Squamous Epithelial Cells Occ /LPF Urine Bacteria Moderate /HPF (0-FEW) Triglycerides Level 142 mg/dL (0-150) Cholesterol Level 126 mg/dL (0-200) LDL Cholesterol, Calculated 58 mg/dL (0-100) VLDL Cholesterol, Calculated 28 mg/dL (0-40) Non-HDL Cholesterol Calculated 86 mg/dL (0-129) HDL Cholesterol 40 mg/dL (40-60) Cholesterol/HDL Ratio 3.2 Test 04/05/17 05:55 Troponin I Quantitative 0.021 ng/mL (0.000-0.055) MARILEE BLAS MD Apr 05, 2017 13:26
[2017-04-05] MEDS: IV 1/2 NORMAL SALINE 1,000 ML IV SCH (13:58)
[2017-04-06 02:54] VITALS: BP 130/61
[2017-04-06 07:00] VITALS: BP 170/98
[2017-04-06 07:23] LABS: BASO # 0.1 x10^3/uL (0.0-0.2); BASO % 1 % (0-3); EOS % 2 % (0-3); HEMATOCRIT 33.8 % (39.0-53.0); HEMOGLOBIN 11.2 g/dL (13.0-17.5); LYMPH # 1.7 x10^3/uL (1.0-4.8); LYMPH % 28 % (24-48); MEAN CORPUSCULAR HEMOGLOBIN 29 pg (25-35); MEAN CORPUSCULAR HGB CONC 33 g/dL (31-37); MEAN CORPUSCULAR VOLUME 87 fL (79-100); MONO % 11 % (0-9); NEUT % 57 % (31-73); PLATELET COUNT 214 x10^3/uL (140-400); RED BLOOD COUNT 3.88 x10^6/uL (4.30-5.70); RED CELL DISTRIBUTION WIDTH 14.1 % (11.5-14.5); WHITE BLOOD COUNT 6.1 x10^3/uL (4.0-11.0)
[2017-04-06 07:47] LABS: CALCIUM 8.5 mg/dL (8.5-10.1); CREATININE 1.4 mg/dL (0.7-1.3); GFR 49.3; MAGNESIUM 1.9 mg/dL (1.8-2.4); POTASSIUM 3.4 mmol/L (3.5-5.1)
[2017-04-06] MEDS: IPRATRPIUM/ALBUTEROL 0.5/2.5MG 3 ML NEBU. NEB SCH ×3 (08:03→16:19)
[2017-04-06] MEDS: BUDESONIDE 0.5 MG/2 ML NEBU. NEB SCH (08:03)
[2017-04-06] MEDS: IV 1/2 NORMAL SALINE 1,000 ML IV SCH (09:15)
--- NOTE | 2017-04-06 09:20 | PDOC ---
PROGRESS NOTES Chief Complaint Chief Complaint Fatigue, malaise Exertional dyspnea ASSESSMENT AND PLAN: 1. Gen weakness: 2/2 UTI and dehydration. resolved. 2. HTN urgency: resolved. high BP this AM prior to meds, recheck in PM 3. Exertional dyspnea: poss cardiac, given PMH. awaiting MPI today emphysematous changes on CXR in never-smoker: ?environmental vs antitrypsin deficiency. cont inhalers 4. CAD: Hx CABG in 1996. no acute issues. cont home meds 5. Infectious colitis: prob C.diff. completed Abx with resolution of sx. remains on isolation in hospital 6. Dehydration: gentle IVF 7. Hypomagnesemia: resolved 8. CKD3: creat stable. monitor 9. UTI: on empiric ceftriax. awaiting cultures 10. GERD: on PPI 11. Dispo: home after MPI History of Present Illness History of Present Illness feels much better, energy is back, appetite not so much, but ok. eager to go home Vitals Vitals Vital Signs Date Time Temp Pulse Resp B/P (MAP) Pulse Ox O2 Delivery O2 Flow Rate FiO2 04/06/17 08:10 95 Room Air 04/06/17 07:00 95.7 101 20 170/98 (122) 95.7 Physical Exam General: Alert, Oriented X3, Cooperative, No acute distress Heart: Regular rate, Other (systolic murmur ) Lungs: Clear Abdomen: Soft, Other (hyperactive bowel sounds ) Extremities: No cyanosis, No edema Skin: No breakdown, No significant lesion Labs LABS Laboratory Tests Test 04/06/17 06:00 White Blood Count 6.1 x10^3/uL (4.0-11.0) Red Blood Count 3.88 x10^6/uL (4.30-5.70) Hemoglobin 11.2 g/dL (13.0-17.5) Hematocrit 33.8 % (39.0-53.0) Mean Corpuscular Volume 87 fL (79-100) Mean Corpuscular Hemoglobin 29 pg (25-35) Mean Corpuscular Hemoglobin Concent 33 g/dL (31-37) Red Cell Distribution Width 14.1 % (11.5-14.5) Platelet Count 214 x10^3/uL (140-400) Neutrophils (%) (Auto) 57 % (31-73) Lymphocytes (%) (Auto) 28 % (24-48) Monocytes (%) (Auto) 11 % (0-9) Eosinophils (%) (Auto) 2 % (0-3) Basophils (%) (Auto) 1 % (0-3) Neutrophils # (Auto) 3.5 x10^3uL (1.8-7.7) Lymphocytes # (Auto) 1.7 x10^3/uL (1.0-4.8) Monocytes # (Auto) 0.7 x10^3/uL (0.0-1.1) Eosinophils # (Auto) 0.1 x10^3/uL (0.0-0.7) Basophils # (Auto) 0.1 x10^3/uL (0.0-0.2) Sodium Level 144 mmol/L (136-145) Potassium Level 3.4 mmol/L (3.5-5.1) Chloride Level 107 mmol/L (98-107) Carbon Dioxide Level 27 mmol/L (21-32) Anion Gap 10 (6-14) Blood Urea Nitrogen 8 mg/dL (8-26) Creatinine 1.4 mg/dL (0.7-1.3) Estimated GFR (Cockcroft-Gault) 49.3 Glucose Level 88 mg/dL (70-99) Calcium Level 8.5 mg/dL (8.5-10.1) Magnesium Level 1.9 mg/dL (1.8-2.4) MARILEE BLAS MD Apr 06, 2017 09:20
[2017-04-06] MEDS ORDERED: REGADENOSON 0.4 MG/5 ML DISP.SYRIN. IV ONE (09:30)
[2017-04-06] MEDS: TAMSULOSIN 0.4 MG CAP.ER.24H. PO SCH (12:36)
[2017-04-06] MEDS: METOPROLOL TART IMMED RELEASE 50 MG TABLET. PO SCH (12:37)
[2017-04-06] MEDS: ASPIRIN ENTERIC COATED 81 MG TABLET.DR. PO SCH (12:37)
[2017-04-06] MEDS: LOSARTAN POTASSIUM 50 MG TABLET. PO SCH (12:38)
[2017-04-06] MEDS: PANTOPRAZOLE 40 MG TABLET.DR. PO SCH (12:38)
[2017-04-06] MEDS: OXYBUTYNIN CHLORIDE 5 MG TABLET PO SCH (12:39)
[2017-04-06] MEDS: amLODIPine BESYLATE 5 MG TABLET PO SCH (12:39)
[2017-04-06] MEDS: FINASTERIDE 5 MG TABLET. PO SCH (12:39)
[2017-04-06 14:52] VITALS: BP 144/85
--- NOTE | 2017-04-07 08:09 | RAD ---
APPROVED REPORT Test Type: Pharmacological Stress Nurse/Tech: sulaiman heredia Test Indications: CAD, FATIGUE Cardiac History: HTN, CABG '97, SEE EHR Medications: SEE EHR Medical History: COPD, SEE EHR Resting ECG: SINUS TACHYCARDIA Resting Heart Rate: 117 bpm Resting Blood Pressure: 155/95mmHg Pretest Chest Pain: No chest pain Nurse/Tech Notes NO SIGNS OR REPIRATORY ISSUE, SINUS TACHYCARDIA UPON INITIAL EKG. PT WITH UE TREMORS, PT STATES HE IS NOT COLD. Consent: The procedure was explained to the patient in lay terms. Informed consent was witnessed. Uday eout was entered into [employer]. History and Stress Test performed by SOFIA Malhotra Pharm. Details Pharmacologic stress testing was performed using 0.4mg per 5ml of regadenoson given intravenously ove r 7-10 seconds. Stress Symptoms HEADACHE, BODY ACHE. POST EXERCISE Reason for Termination: Infusion complete Max HR: 132 bpm Max Blood Pressure: 155/95mmHg Chest Pain: No. Arrhythmia: No. ST Change: No. INTERPRETATION Stress EKG Conclusion: Sinus tachycardia. No significant ischemic changes. LV Perfusion There is a moderate sized, severe in intensity basal to mid inferior wall reversible defect suggestiv e of impaired perfusion reserve in the proximal to mid RCA. There is also note of transient ischemic dilation at a ratio of 1.3 suggestive of balanced ischemia/m ultivessel disease consistent with patients prior bypass surgery. Wall Motion Mild global hypokinesis but EF preserved at 59% LV Perfusion 1 TCD/TID: Yes Other Information Quality:Average Risk Assessment: Moderate-High Risk Conclusion 1. No evidence of stress induced ischemic changes on EKG. 2. Reversible basal to mid inferior wall defect. 3. Transient ischemic dilation suggestive of multivessel disease. 4. Low normal EF. 5. Moderate to high risk study Recommendations Consideration of cardiac catheterization after stabilzation. The above findings could be explained by 3V CAD and fits with patient's history of CABG. Due to progressive dyspnea, cardiac catheterization could be considered to ensure patency of bypass grafts.
--- NOTE | 2017-04-07 09:19 | DS ---
DATE OF DISCHARGE: 04/06/2017 CHIEF COMPLAINT: Dehydration and dyspnea on exertion. HOSPITAL COURSE: The patient is a 76-year-old gentleman with past medical history of CAD status post CABG 20 years ago, who presented after having had diarrhea with colitis requiring antibiotics from his PCP ____ with ongoing fatigue and general malaise. He thought he was dehydrated and presented to the ER. He also admitted to some increased shortness of breath over his baseline. He was admitted and rehydrated, actually did fairly well from a GI standpoint; no further diarrhea, abdominal pain, nausea, or vomiting. For his dyspnea on exertion and history of CAD, cardiac consult was obtained. Further studies were undertaken including an MPI on the 04/06/2017. Results of this unfortunately were not available at the time of discharge. All his other workup was negative, he preferred going home and following up with Cardiology on an outpatient basis. The patient relates that he actually has chronic shortness of breath with dyspnea on exertion, which responsive to inhalers. A chest x-ray here actually showed emphysematous changes, which is somewhat unusual in a never smoker and question of antitrypsin deficiency. PHYSICAL EXAMINATION: Please refer to note from the same day of discharge 04/06/2017. DISCHARGE DIAGNOSES: Dehydration and dyspnea on exertion. DISCHARGE DISPOSITION: To home. DISCHARGE CONDITION: Improved. DISCHARGE MEDICATIONS: Please refer to MAR. DISCHARGE INSTRUCTIONS: The patient will follow up with PCP in 1-2 weeks. MARILEE BLAS MD DR: PHUONG/nts JOB#: [id number] / [id number] PRIYA Courtney MD
== END 2017-04-06 17:00 | disposition home or self-care (01) | DRG 690 ==
LOC: ER 16:16 → 6 SOUTH 18:00
PROVIDERS: ADMIT Internal Medicine Hematology & Oncology; ATTEND Internal Medicine Hematology & Oncology
DX: N39.0 Urinary tract infection, site not specified (principal); A09 Infectious gastroenteritis and colitis, unspecified; E86.0 Dehydration; I16.0 Hypertensive urgency; N18.3 Chronic kidney disease, stage 3 (moderate); K21.9 Gastro-esophageal reflux disease without esophagitis; J44.9 Chronic obstructive pulmonary disease, unspecified; I25.10 Atherosclerotic heart disease of native coronary artery without angina pectoris; I12.9 Hypertensive chronic kidney disease with stage 1 through stage 4 chronic kidney disease, or unspecified chronic kidney disease; E78.5 Hyperlipidemia, unspecified; E83.42 Hypomagnesemia; N40.0 Benign prostatic hyperplasia without lower urinary tract symptoms; M19.90 Unspecified osteoarthritis, unspecified site; R63.0 Anorexia; W19.XXXA Unspecified fall, initial encounter; Z60.2 Problems related to living alone; Y93.89 Activity, other specified; Y92.091 Bathroom in other non-institutional residence as the place of occurrence of the external cause; Y99.8 Other external cause status; Z95.1 Presence of aortocoronary bypass graft; Z82.49 Family history of ischemic heart disease and other diseases of the circulatory system; Z68.21 Body mass index [BMI] 21.0-21.9, adult
CPT/HCPCS: 36415; 70450; 71010; 78452; 80048; 80061; 80076; 81001; 82553; 83735; 83880; 84443; 84484; 85027; 87086; 87186; 93005; 93017; 94250; 94640; 96360; 96361; 96374; 96375; 96376; A9500; J0360; J0696; J2785; J7030; J7060; J7620; J7626; 99285-25

== ENCOUNTER 2017-04-21 11:20 | Outpatient (CLI) | payer OTHER ==
[~2017-04-21] VITALS: Ht 182.9 cm; Wt 71.7 kg
[2017-04-21] VITALS (9 sets, daily range): BP systolic 171–196; BP diastolic 90–107
[~2017-04-21 11:20] MED LIST: AMLO5TAB2 PO; ASPI-482 PO; BUDE10.2 IH; FINA5TAB4 PO; IPRA4AER IH; LOSA50TA6 PO; METO50TA2 PO; OMEP20TA8 PO; OXYB5TAB7 PO; TAMS0.4C2 PO
[2017-04-21 12:11] LABS: HEMATOCRIT 34.1 % (39.0-53.0); HEMOGLOBIN 11.2 g/dL (13.0-17.5); RED BLOOD COUNT 4.01 x10^6/uL (4.30-5.70); WHITE BLOOD COUNT 7.1 x10^3/uL (4.0-11.0)
[2017-04-21 12:20] LABS: INR 1.1 (0.8-1.1); PROTHROMBIN TIME PATIENT 13.5 SEC (11.7-14.0)
[2017-04-21 12:22] LABS: CALCIUM 8.6 mg/dL (8.5-10.1); CREATININE 1.2 mg/dL (0.7-1.3); GFR 58.9; POTASSIUM 3.6 mmol/L (3.5-5.1)
[2017-04-21] MEDS ORDERED: IV NORMAL SALINE 1000ML BAG 1,000 ML IV SCH (12:30)
[2017-04-21] MEDS ORDERED: HEPARIN for ARTERIAL LINE 1,500 ML ONE (12:56)
[2017-04-21] MEDS ORDERED: IOHEXOL 300 MG/ML 100ML VIAL. ONE (12:56)
[2017-04-21] MEDS ORDERED: LIDOCAINE 2% 20 ML VIAL. ONE (12:56)
[2017-04-21] MEDS ORDERED: VERAPAMIL 5 MG/2 ML VIAL. ONE (13:17)
[2017-04-21] MEDS ORDERED: NITROGLYCERIN 200 MCG/2 ML SYRINGE FOR CATH/VASC LAB. ONE (13:17)
[2017-04-21] MEDS ORDERED: HEPARIN for IV BOLUS 10,000 UNIT/10 ML VIAL. ONE (13:17)
[2017-04-21] MEDS ORDERED: fentaNYL PF VIAL 100 MCG/2 ML VIAL ONE (13:18)
[2017-04-21] MEDS ORDERED: MIDAZOLAM HCL/PF 2 MG/2 ML VIAL. ONE (13:18)
[2017-04-21] MEDS ORDERED: hydrALAZINE 20 MG/ML VIAL. ONE (13:36)
[2017-04-21] MEDS ORDERED: hydrALAZINE 20 MG/ML VIAL. IVP ONE (13:45)
[2017-04-21] MEDS ORDERED: fentaNYL PF VIAL 100 MCG/2 ML VIAL IV ONE (13:45)
[2017-04-21] MEDS ORDERED: MIDAZOLAM HCL/PF 2 MG/2 ML VIAL. IV ONE (13:45)
[2017-04-21] MEDS ORDERED: LIDOCAINE 2% 20 ML VIAL. IJ ONE (13:45)
[2017-04-21] MEDS ORDERED: IOHEXOL 300 MG/ML 100ML VIAL. IART ONE (13:45)
[2017-04-21] MEDS ORDERED: VERAPAMIL 5 MG/2 ML VIAL. IV ONE (14:15)
--- NOTE | 2017-04-21 14:35 | CARD ---
APPROVED REPORT Procedure(s) performed: sedation time: 41 minutes Left heart catheterization Coronary angiography Bypass angiography HISTORY : The patient is a 76 year-old male with a history of . INDICATION The indication(s) include : positive stress test, dyspnea. CASE TECHNIQUE During this case, Fluoroscopy and low osmolar contrast were used for imaging. PROCEDURE NARRATIVE The patient was brought electively to the cardiac catheterization lab. A timeout was performed confi rming the patient's name, date of , procedure, and site of procedure. All necessary personnel w ere wearing the appropriate protective equipment and radiation monitor devices. After explaining the risks and benefits of the procedure and alternatives, informed consent was obtained. (See nursing no cynthia for medications administered). The right groin was sterilely prepped and draped in the usual fas hion. The right groin was infiltrated with 8 mL of 2% lidocaine for subcutaneous anesthesia. A 6 F sheath was inserted into the right femoral artery without difficulty. Right and left coronary angiog xenia was performed using standard JR4 and JL4 catheters. Left ventricular end diastolic pressure wa s obtained with an LCB catheter and pullback was performed. All catheter exchanges and advancements were performed over a guidewire. At case completion the right femoral sheath was removed and hemosta sis was acheived with an Angioseal Device. The patient tolerated the procedure well and there were n o immediate complications. HEMODYNAMICS: LVEDP 24 mm Hg No gradient on LV to aortic pullback. LEFT VENTRICULOGRAM: Deferred due to known normal EF on stress testing. CORONARY ANGIOGRAPHY: LM is a very short moderate caliber vessel with near seperate ostia of the LCx and LAD. LAD is a moderate caliber vessel with a proximal subtotal occlusion. The distal vessel fills via a ro bust patent HARRISON and has no significant disease. D1 is a small caliber vessel with mild diffuse irregularities. This vessel fills antegrade and via re trograde flow from the HARRISON to LAD. LCx is a moderate caliber non-dominant vessel with a proximal 100% occlusion. The distal vessel fills via a SVG. OM1 is a moderate caliber vessel with normal angiographic appearance that fills via a patent sequenti al vein graft. LPL is a small to moderate caliber bifurcating vessel with normal angiographic appearance that fills via the sequentiial vein graft. RCA is a small to moderate caliber dominant vessel with a proximal 100% occlusion. An atrial branch i s seen to provide right to left collaterals. RPDA is a small diffusely diseased vessel with moderate calicification with up to 50% stenosis. RPL is a moderate caliber vessel with mild luminal irregularities. BYPASS ANGIOGRAPHY: HARRISON to LAD: patent without anastomotic stenosis. SVG to OM1/LPL sequential graft: patent without anastomotic stenosis. SVG to RCA: patent without anastomotic stenosis with a proximal 50% stenosis in the mid body of the g raft. Conclusion 1. Hypertensive heart disease 2. Severe three vessel pilot station CAD 3. 4/4 grafts patent Recommendations Aggressive Medical Therapy
== END 2017-04-21 16:15 | disposition home or self-care (01) ==
LOC: CCL 11:20
PROVIDERS: ATTEND Internal Medicine Cardiovascular Disease
DX: R94.39 Abnormal result of other cardiovascular function study (principal); I25.10 Atherosclerotic heart disease of native coronary artery without angina pectoris; E78.00 Pure hypercholesterolemia, unspecified; I10 Essential (primary) hypertension; J45.909 Unspecified asthma, uncomplicated; M19.90 Unspecified osteoarthritis, unspecified site; Z90.49 Acquired absence of other specified parts of digestive tract; Z87.39 Personal history of other diseases of the musculoskeletal system and connective tissue
CPT/HCPCS: 36415; 80048; 85027; 85610; 93458; 99152; 99153; C1769; C1771; C1887; C1892; J0360; J1644; J2001; J2250; J3010; Q9967; G0269

== ENCOUNTER 2017-10-07 01:24 | Inpatient (IN) | payer OTHER ==
[2017-10-07] MEDS: IPRATRPIUM/ALBUTEROL 0.5/2.5MG 3 ML NEBU. NEB ×4 (01:47→19:26)
[2017-10-07 01:52] LABS: ADD MAN DIFF? NO
[2017-10-07 01:55] LABS: BASO # 0.1 x10^3/uL (0.0-0.2); BASO % 1 % (0-3); EOS # 0.5 x10^3/uL (0.0-0.7); EOS % 6 % (0-3); HEMATOCRIT 40.9 % (39.0-53.0); HEMOGLOBIN 13.4 g/dL (13.0-17.5); LYMPH # 1.2 x10^3/uL (1.0-4.8); LYMPH % 16 % (24-48); MEAN CORPUSCULAR HEMOGLOBIN 28 pg (25-35); MEAN CORPUSCULAR HGB CONC 33 g/dL (31-37); MEAN CORPUSCULAR VOLUME 85 fL (79-100); MONO # 0.7 x10^3/uL (0.0-1.1); MONO % 9 % (0-9); NEUT # 5.3 x10^3uL (1.8-7.7); NEUT % 68 % (31-73); PLATELET COUNT 190 x10^3/uL (140-400); RED BLOOD COUNT 4.85 x10^6/uL (4.30-5.70); RED CELL DISTRIBUTION WIDTH 15.3 % (11.5-14.5); WHITE BLOOD COUNT 7.8 x10^3/uL (4.0-11.0)
[2017-10-07 02:06] LABS: ANION GAP 10 (6-14); BLOOD UREA NITROGEN 16 mg/dL (8-26); CALCIUM 8.6 mg/dL (8.5-10.1); CARBON DIOXIDE 25 mmol/L (21-32); CHLORIDE 106 mmol/L (98-107); CREATININE 1.2 mg/dL (0.7-1.3); GFR 58.7; GLUCOSE 129 mg/dL (70-99); POTASSIUM 3.7 mmol/L (3.5-5.1); SODIUM 141 mmol/L (136-145)
[2017-10-07 02:12] LABS: ALBUMIN 3.4 g/dL (3.4-5.0); ALK PHOS 115 U/L (46-116); ALT (SGPT) 18 U/L (16-63); AST (SGOT) 18 U/L (15-37); DIRECT BILIRUBIN 0.2 mg/dL (0.0-0.2); LIPASE 187 U/L (73-393); TOTAL BILIRUBIN 0.9 mg/dL (0.2-1.0)
[2017-10-07] MEDS: IV NORMAL SALINE 500ML BAG 500 ML IV ×2 (02:13→05:00)
[2017-10-07 02:17] LABS: NT-PRO BNP 2345 pg/mL (0-449)
[2017-10-07 02:18] LABS: TROPONINI < 0.017 ng/mL (0.000-0.055)
[2017-10-07] MEDS: methylPREDNISolone SOD SUCC PF 125 MG/2 ML VIAL. IV (05:11)
[2017-10-07] MEDS ORDERED: CONTRAST GIVEN MC (05:15)
[2017-10-07] MEDS: IOHEXOL 300 MG/ML 100ML VIAL. IV (05:21)
[2017-10-07] MEDS ORDERED: MORPHINE SULFATE 2 MG/ML DISP.SYRIN. IV (05:30)
[2017-10-07] MEDS ORDERED: ONDANSETRON PF 4 MG/2 ML VIAL. IV (05:30)
[2017-10-07] MEDS: IV NORMAL SALINE 1000ML BAG 1,000 ML IV (06:17)
[2017-10-07] MEDS: amLODIPine BESYLATE 10 MG TABLET PO (09:36)
[2017-10-07 12:21] LABS: TROPONINI < 0.017 ng/mL (0.000-0.055)
[2017-10-07] MEDS: methylPREDNISolone SOD SUCC PF 40 MG/ML VIAL. IV ×2 (13:06→20:47)
[2017-10-07] MEDS: LABETALOL 20 MG/4 ML DISP.SYRIN. IVP (14:31)
[2017-10-07] MEDS ORDERED: hydrALAZINE 20 MG/ML VIAL. IVP (17:00)
[2017-10-07 18:04] LABS: TROPONINI < 0.017 ng/mL (0.000-0.055)
[2017-10-07] MEDS: METOPROLOL TART IMMED RELEASE 50 MG TABLET. PO (20:46)
[2017-10-08 04:17] LABS: ADD MAN DIFF? NO
[2017-10-08 04:35] LABS: BASO % 0 % (0-3); EOS % 0 % (0-3); HEMATOCRIT 38.2 % (39.0-53.0); HEMOGLOBIN 12.4 g/dL (13.0-17.5); LYMPH # 0.7 x10^3/uL (1.0-4.8); LYMPH % 14 % (24-48); MEAN CORPUSCULAR HEMOGLOBIN 27 pg (25-35); MEAN CORPUSCULAR HGB CONC 33 g/dL (31-37); MEAN CORPUSCULAR VOLUME 83 fL (79-100); MONO # 0.2 x10^3/uL (0.0-1.1); MONO % 4 % (0-9); NEUT # 4.3 x10^3uL (1.8-7.7); NEUT % 82 % (31-73); PLATELET COUNT 204 x10^3/uL (140-400); RED BLOOD COUNT 4.59 x10^6/uL (4.30-5.70); RED CELL DISTRIBUTION WIDTH 15.3 % (11.5-14.5); WHITE BLOOD COUNT 5.3 x10^3/uL (4.0-11.0)
[2017-10-08 04:54] LABS: ANION GAP 10 (6-14); BLOOD UREA NITROGEN 18 mg/dL (8-26); CALCIUM 8.6 mg/dL (8.5-10.1); CARBON DIOXIDE 24 mmol/L (21-32); CHLORIDE 107 mmol/L (98-107); CHOLESTEROL 136 mg/dL (0-200); GFR 72.5; GLUCOSE 153 mg/dL (70-99); HDLC 50 mg/dL (40-60); LDLC 73 mg/dL (0-100); NON-HDL CHOLESTEROL 86 mg/dL (0-129); POTASSIUM 3.4 mmol/L (3.5-5.1); SODIUM 141 mmol/L (136-145); TRIGLYCERIDES 65 mg/dL (0-150); VLDLC 13 mg/dL (0-40)
[2017-10-08 04:56] LABS: CHOLESTEROL/HDL RATIO 2.7
[2017-10-08] MEDS: methylPREDNISolone SOD SUCC PF 40 MG/ML VIAL. IV ×2 (06:02→11:39)
[2017-10-08] MEDS: IPRATRPIUM/ALBUTEROL 0.5/2.5MG 3 ML NEBU. NEB ×2 (07:24→11:21)
[2017-10-08] MEDS: ASPIRIN ENTERIC COATED 81 MG TABLET.DR. PO (09:50)
[2017-10-08] MEDS: LOSARTAN POTASSIUM 50 MG TABLET. PO (09:50)
[2017-10-08] MEDS: amLODIPine BESYLATE 5 MG TABLET PO (09:51)
[2017-10-08] MEDS: METOPROLOL TART IMMED RELEASE 50 MG TABLET. PO (09:52)
== END 2017-10-08 12:05 | disposition home or self-care (01) | DRG 190 ==
LOC: ER 01:24 → ED HOLD 05:27 → 4 NORTH 14:08
DX: J44.0 Chronic obstructive pulmonary disease with (acute) lower respiratory infection (principal); I50.43 Acute on chronic combined systolic (congestive) and diastolic (congestive) heart failure; J47.0 Bronchiectasis with acute lower respiratory infection; J45.901 Unspecified asthma with (acute) exacerbation; K21.9 Gastro-esophageal reflux disease without esophagitis; J20.9 Acute bronchitis, unspecified; J44.1 Chronic obstructive pulmonary disease with (acute) exacerbation; I11.0 Hypertensive heart disease with heart failure; Z95.1 Presence of aortocoronary bypass graft; E78.5 Hyperlipidemia, unspecified; I25.10 Atherosclerotic heart disease of native coronary artery without angina pectoris; M19.90 Unspecified osteoarthritis, unspecified site; N40.0 Benign prostatic hyperplasia without lower urinary tract symptoms; Z82.49 Family history of ischemic heart disease and other diseases of the circulatory system; Z90.49 Acquired absence of other specified parts of digestive tract
CPT/HCPCS: 36415; 71045; 71275; 80048; 80061; 80076; 83690; 83880; 84484; 85025; 93005; 93306; 94640; 96372; 96374; 96375; 99285; 99285-25; J1650; J2920; J2930; J3490; J7030; J7040; J7620; Q9967

== ENCOUNTER 2017-11-08 20:49 | Inpatient (IN) | payer OTHER ==
[2017-11-08 21:15] LABS: ADD MAN DIFF? NO
[2017-11-08 21:19] LABS: BASO # 0.1 x10^3/uL (0.0-0.2); BASO % 1 % (0-3); EOS # 0.1 x10^3/uL (0.0-0.7); EOS % 1 % (0-3); HEMATOCRIT 40.4 % (39.0-53.0); HEMOGLOBIN 13.5 g/dL (13.0-17.5); LYMPH # 0.8 x10^3/uL (1.0-4.8); LYMPH % 9 % (24-48); MEAN CORPUSCULAR HEMOGLOBIN 28 pg (25-35); MEAN CORPUSCULAR HGB CONC 33 g/dL (31-37); MEAN CORPUSCULAR VOLUME 84 fL (79-100); MONO % 12 % (0-9); NEUT # 6.9 x10^3uL (1.8-7.7); NEUT % 78 % (31-73); PLATELET COUNT 211 x10^3/uL (140-400); RED BLOOD COUNT 4.82 x10^6/uL (4.30-5.70); RED CELL DISTRIBUTION WIDTH 15.6 % (11.5-14.5); WHITE BLOOD COUNT 8.8 x10^3/uL (4.0-11.0)
[2017-11-08] MEDS: IPRATRPIUM/ALBUTEROL 0.5/2.5MG 3 ML NEBU. NEB (21:21)
[2017-11-08 21:28] LABS: INR 1.1 (0.8-1.1); PARTIAL THROMBOPLASTIN TIME 30 SEC (24-38); PROTHROMBIN TIME PATIENT 13.9 SEC (11.7-14.0)
[2017-11-08 21:29] LABS: ANION GAP 13 (6-14); BLOOD UREA NITROGEN 14 mg/dL (8-26); BUN/CREATININE RATIO 10 (6-20); CARBON DIOXIDE 25 mmol/L (21-32); CHLORIDE 102 mmol/L (98-107); CREATININE 1.4 mg/dL (0.7-1.3); GFR 49.1; GLUCOSE 106 mg/dL (70-99); POTASSIUM 3.9 mmol/L (3.5-5.1); SODIUM 140 mmol/L (136-145)
[2017-11-08] MEDS: ONDANSETRON PF 4 MG/2 ML VIAL. IV (21:29)
[2017-11-08] MEDS: IV NORMAL SALINE 1000ML BAG 1,000 ML IV (21:29)
[2017-11-08 21:35] LABS: ALBUMIN 3.2 g/dL (3.4-5.0); ALBUMIN/GLOBULIN RATIO 0.7 (1.0-1.7); ALK PHOS 146 U/L (46-116); ALT (SGPT) 35 U/L (16-63); AST (SGOT) 45 U/L (15-37); TOTAL BILIRUBIN 0.9 mg/dL (0.2-1.0); TOTAL PROTEIN 7.5 g/dL (6.4-8.2)
[2017-11-08 21:37] LABS: TROPONINI < 0.017 ng/mL (0.000-0.055)
[2017-11-08 21:38] LABS: LACTIC ACID 1.3 mmol/L (0.4-2.0)
[2017-11-08 21:43] LABS: NT-PRO BNP 2957 pg/mL (0-449)
[2017-11-08 21:52] LABS: BILIRUBIN,URINE NEGATIVE (NEG); CLARITY,URINE CLEAR; COLOR,URINE YELLOW; GLUCOSE,URINE NEGATIVE (NEG); NITRITE,URINE NEGATIVE (NEG); PROTEIN,URINE 30 mg/dL (NEG-TRACE); UROBILINOGEN,URINE 0.2 mg/dL (0.2 mg/dL)
[2017-11-08 22:00] LABS: INFLUENZA A PATIENT NEGATIVE (NEGATIVE); INFLUENZA B PATIENT NEGATIVE (NEGATIVE); OBC FLU VALID
[2017-11-08] MEDS ORDERED: PIP/TAZO PER PHARMACY MC (22:00)
[2017-11-08] MEDS ORDERED: levOFLOXacin PER PHARMACY. MC (22:00)
[2017-11-08 22:03] LABS: BACTERIA,URINE 0 /HPF (0-FEW); WBC,URINE OCC /HPF (0-4)
[2017-11-08] MEDS: FUROSEMIDE 40 MG/4 ML VIAL. IVP (22:22)
[2017-11-08] MEDS: methylPREDNISolone SOD SUCC PF 125 MG/2 ML VIAL. IV (22:22)
[2017-11-08] MEDS: PIPERACILLIN/TAZOBACTAM 3.375 GM in IV NORMAL SALINE 50ML 50 ML IV (22:23)
[2017-11-08] MEDS: ACETAMINOPHEN 500 MG TABLET PO (22:24)
[2017-11-08] MEDS ORDERED: NITROGLYCERIN SUBLINGUAL 0.4 MG BOTTLE OF 25. SL (23:00)
[2017-11-08] MEDS ORDERED: ACETAMINOPHEN 325 MG TABLET. PO (23:00)
[2017-11-08] MEDS ORDERED: ONDANSETRON PF 4 MG/2 ML VIAL. IV (23:00)
[2017-11-08] MEDS ORDERED: MORPHINE SULFATE 4 MG/ML DISP.SYRIN. IV (23:00)
[2017-11-08] MEDS: VANCOMYCIN 1.75 GM in IV DEXTROSE 5 %-0.2 % NACL 500 ML IV (23:30)
[2017-11-09] MEDS: VANCOMYCIN PER PHARMACY MC (01:18)
[2017-11-09 03:35] LABS: TROPONINI 0.026 ng/mL (0.000-0.055)
[2017-11-09 05:44] LABS: BASO % 0 % (0-3); EOS % 0 % (0-3); HEMATOCRIT 38.2 % (39.0-53.0); HEMOGLOBIN 12.6 g/dL (13.0-17.5); LYMPH # 0.4 x10^3/uL (1.0-4.8); LYMPH % 5 % (24-48); MEAN CORPUSCULAR HEMOGLOBIN 28 pg (25-35); MEAN CORPUSCULAR HGB CONC 33 g/dL (31-37); MEAN CORPUSCULAR VOLUME 84 fL (79-100); MONO # 0.3 x10^3/uL (0.0-1.1); MONO % 5 % (0-9); NEUT # 6.5 x10^3uL (1.8-7.7); NEUT % 90 % (31-73); PLATELET COUNT 199 x10^3/uL (140-400); RED BLOOD COUNT 4.53 x10^6/uL (4.30-5.70); RED CELL DISTRIBUTION WIDTH 15.8 % (11.5-14.5); WHITE BLOOD COUNT 7.2 x10^3/uL (4.0-11.0)
[2017-11-09] MEDS: PIPERACILLIN/TAZOBACTAM 3.375 GM in IV NORMAL SALINE 50ML 50 ML IV ×2 (05:58→11:18)
[2017-11-09 05:59] LABS: ADD MAN DIFF? YES
[2017-11-09 06:07] LABS: ANION GAP 12 (6-14); BLOOD UREA NITROGEN 16 mg/dL (8-26); CALCIUM 8.4 mg/dL (8.5-10.1); CARBON DIOXIDE 25 mmol/L (21-32); CHLORIDE 101 mmol/L (98-107); CREATININE 1.5 mg/dL (0.7-1.3); GFR 45.4; GLUCOSE 194 mg/dL (70-99); POTASSIUM 3.1 mmol/L (3.5-5.1); SODIUM 138 mmol/L (136-145)
[2017-11-09 06:59] LABS: TROPONINI 0.024 ng/mL (0.000-0.055)
[2017-11-09] MEDS: IPRATRPIUM/ALBUTEROL 0.5/2.5MG 3 ML NEBU. NEB ×2 (07:29→11:08)
[2017-11-09 09:13] LABS: % BANDS 6 % (0-9); % EOS 1 % (0-5); % LYMPHS 3 % (24-48); % MONOS 4 % (0-10); % MYELOS 1 % (0-0); % SEGS 85 % (35-66); PLT ESTIMATE ADEQUATE (ADEQUATE)
[2017-11-09] MEDS: LACTOBACILLUS RHAMNOSUS GG 1 CAPSULE. PO (09:59)
[2017-11-09] MEDS: POTASSIUM CHLORIDE 20 MEQ TABLET.ER. PO (13:16)
[2017-11-09] MEDS: ASPIRIN ENTERIC COATED 81 MG TABLET.DR. PO (13:16)
[2017-11-09] MEDS: FINASTERIDE 5 MG TABLET. PO (13:16)
[2017-11-09] MEDS: OXYBUTYNIN CHLORIDE 5 MG TABLET PO (13:16)
[2017-11-09] MEDS: TAMSULOSIN 0.4 MG CAP.ER.24H. PO (13:16)
[2017-11-09] MEDS: LOSARTAN POTASSIUM 50 MG TABLET. PO (13:17)
[2017-11-09] MEDS: METOPROLOL TART IMMED RELEASE 50 MG TABLET. PO (13:17)
[2017-11-09] MEDS: amLODIPine BESYLATE 5 MG TABLET PO (13:18)
[2017-11-09] MEDS ORDERED: PANTOPRAZOLE 40 MG TABLET.DR. PO (16:30)
[2017-11-09] MEDS ORDERED: VANCOMYCIN 1 GM in IV NORMAL SALINE 250ML 250 ML IV (23:30)
[2017-11-09] MEDS ORDERED: VANCOMYCIN 1 GM in IV DEXTROSE 5% 250 ML IV (23:30)
== END 2017-11-09 16:15 | disposition home or self-care (01) | DRG 871 ==
LOC: ER 20:49 → 2 NORTH 22:10
DX: A41.9 Sepsis, unspecified organism (principal); J15.9 Unspecified bacterial pneumonia; J96.00 Acute respiratory failure, unspecified whether with hypoxia or hypercapnia; I11.0 Hypertensive heart disease with heart failure; I50.9 Heart failure, unspecified; I25.10 Atherosclerotic heart disease of native coronary artery without angina pectoris; K21.9 Gastro-esophageal reflux disease without esophagitis; Z82.49 Family history of ischemic heart disease and other diseases of the circulatory system; Z95.1 Presence of aortocoronary bypass graft; Z90.49 Acquired absence of other specified parts of digestive tract
CPT/HCPCS: 36415; 71045; 80048; 80053; 81001; 83605; 83880; 84484; 85007; 85025; 85610; 85730; 87040; 87804; 87804-59; 93005; 94640; 96361; 96365; 96368; 96375; 99285; 99285-25; J1940; J1956; J2405; J2543; J2930; J3370; J7030; J7620

== ENCOUNTER → 2018-06-17 | Outpatient (CLI) | payer OTHER ==
[2017-11-09 15:00] VITALS: BP 154/81
[~2018-06-17] MED LIST changes: -AMLO5TAB2 PO; +AMLO5TAB7 PO; -LOSA50TA6 PO; +LOSA50TA7 PO; +METH4TAB2 PO; -METO50TA2 PO; +METO50TA6 PO; +PROVENTIL HFA6.7 GM IH
--- NOTE | 2018-06-17 14:13 | KCIC ---
MRI Lumbar Spine without contrast History: Chronic lumbar radiculopathy, low back pain, left radiculopathy Technique: Multiplanar, multi sequential noncontrast MR imaging was performed of the lumbar spine. Contrast: None Comparison: None Findings: Lumbar vertebral body stature is overall preserved other than multilevel Schmorl's nodes. There is grade 1 anterior spondylolisthesis at L4-5 and minimal posterior subluxation L3 relative to L4 and L2 relative to L3. There is fairly advanced degenerative disc disease L2-3 and L3-4 to a somewhat lesser degree at L4-5 and L5-S1, minimally L1-2. Conus terminates at L1-L2. L1-L2: There is shallow bulge/protrusion more eccentric to the right lateral recess. The spinal canal is overall adequate. There is mild facet degenerative change. There is mild neural foramina compromise from posteriorly bilaterally. L2-L3: There is minimal disc osteophyte complex. There is moderate to facet hypertrophic change and mild buckling of the ligamentum flavum. There is mild narrowing of the far left lateral recess. There is mild to moderate right greater than left neural foramina compromise. L3-L4: There is moderate to severe facet degenerative change and buckling of the ligamentum flavum. There is broad posterior disc osteophyte complex. There is superimposed extrusion extending below the intervertebral disc space eccentric to the far left lateral recess about 0.9 cm transverse by 0.8 cm AP by 0.9 cm cc. There is severe left lateral recess stenosis at and below the intervertebral disc space, impingement of the descending left L4 nerve root. There is mild narrowing of the central canal. There is fairly severe left and moderate right neural foramina compromise primarily from facet hypertrophic change although also disc osteophyte complex. L4-L5: There is facet degenerative change. There is partial uncovering of the posterior aspect of the disc due to spondylolisthesis, also superimposed disc osteophyte complex. There is mild flattening of the thecal sac although spinal canal overall adequate, apparently defects of the lamina bilaterally. There is moderate, right greater than left neural foramina compromise with contact of the undersurfaces exiting L4 nerve roots greater on the right by disc osteophyte complex. L5-S1: There is minimal disc osteophyte complex. There is mild/moderate facet degenerative change and minimal buckling of the ligamentum flavum. Spinal canal is adequate. Neural foramina are adequate. Impression: 1. There is severe left lateral recess stenosis at and below the L3-4 level in part from extrusion with impingement of the descending left L4 nerve root. There is mild left lateral recess stenosis L2-3. 2. There is multilevel moderate to severe degenerative disc disease L2-3 through L5-S1. 3. There is grade 1 anterior spondylolisthesis L4-5 and minimal posterior subluxation L3 relative to L4 and L2 relative to L3. There is multilevel facet degenerative change. 4. There is severe narrowing of the left L3-4 neural foramen, moderate narrowing on the right L3-4 and bilaterally at L4-5 and L2-3. Electronically signed by: Dev Roberts MD (06/17/2018 2:10 PM) [facility]
== END | disposition home or self-care (01) ==
LOC: KCIC MRI 13:06
PROVIDERS: ATTEND Physical Medicine & Rehabilitation
DX: S33.130A Subluxation of L3/L4 lumbar vertebra, initial encounter (principal); M48.061 Spinal stenosis, lumbar region without neurogenic claudication; M25.78 Osteophyte, vertebrae; X58.XXXA Exposure to other specified factors, initial encounter; Y93.89 Activity, other specified; Y92.89 Other specified places as the place of occurrence of the external cause; Y99.8 Other external cause status
CPT/HCPCS: 72148

== ENCOUNTER 2019-04-01 21:44 | Emergency (ER) | payer OTHER ==
[~2019-04-01] VITALS: Ht 182.9 cm; Wt 83.9 kg
[~2019-04-01 21:44] MED LIST changes: +ALBU2.5V8 IH; +AMLO5TAB10 PO; -AMLO5TAB7 PO; +LOSA-73 PO; -LOSA50TA7 PO; -PROVENTIL HFA6.7 GM IH
--- NOTE | 2019-04-01 22:35 | RAD ---
CT Head W/O Contrast: History: Fall, hit head Comparison: none Axial images were obtained without contrast. The wtaers and white matter appears normal and symmetrical for the patients age. There is no mass effect, extraaxial fluid collections or hydrocephalus. There is no gross bleed. There is no focal loss of waters-white matter distinction to suggest acute ischemia, i.e. stroke. Impression: No acute findings. End impression CT maxillofacial without contrast History: Pain status post fall Axial helical images of the face were obtained without contrast. Axial and coronal reconstruction was performed. The nasal septum is moderately deviated to the left. The ostiomeatal complexes are narrow but patent. The paranasal sinuses are clear. The visualized osseous structures appear intact. The orbits appear normal. Impression: No acute findings. PQRS Compliance Statement: One or more of the following individualized dose reduction techniques were utilized for this examination: 1. Automated exposure control 2. Adjustment of the mA and/or kV according to patient size 3. Use of iterative reconstruction technique Electronically signed by: Roly Chaney III, MD (04/01/2019 10:32 PM) [facility]
[2019-04-01] MEDS ORDERED: ACETAMINOPHEN 500 MG TABLET PO ONE (23:30)
[2019-04-01] MEDS ORDERED: DIPHTH,PERTUSS(ACELL),TET TOX 0.5 ML DISP.SYRIN. VAX IM ONE (23:30)
--- NOTE | 2019-04-02 00:19 | PHYS DOC ---
Past Medical History Past Medical History: Bronchitis, CAD, GERD, Hypertension, Other Additional Past Medical Histor: NO KNOWN DX BUT USES INHALERS DAILY Past Surgical History: Cholecystectomy, Coronary Bypass Surgery, Tonsillectomy, Other Additional Past Surgical Histo: Shoulder Alcohol Use: None Drug Use: None Adult General Chief Complaint Chief Complaint: MECHANICAL FALL HPI HPI Patient is a 78 year old female with history of hypertension, GERD, CAD, who presents to the ED today complaining of 4 out of 10 throbbing left forehead pain status post falling. He states he was walking outside when he missed stepped and fell. Denies any loss of consciousness, he states he stopped taking his baby aspirin 2 weeks ago. Denies anything exacerbating or relieving his headache. Denies any neck pain, denies any mid or low back pain. Review of Systems Review of Systems Constitutional: Denies fever or chills [] Eyes: Denies change in visual acuity, redness, or eye pain [] HENT: Denies nasal congestion or sore throat [] Respiratory: Denies cough or shortness of breath [] Cardiovascular: No additional information not addressed in HPI [] GI: Denies abdominal pain, nausea, vomiting, bloody stools or diarrhea [] : Denies dysuria or hematuria [] Musculoskeletal: Denies back pain or joint pain [] Integument: Denies rash or skin lesions [] Neurologic: Reports headache, denies focal weakness or sensory changes [] All other systems were reviewed and found to be within normal limits, except as documented in this note. Current Medications Current Medications Current Medications Medications (Trade) Dose Ordered Sig/Chari Start Time Stop Time Status Last Admin Dose Admin Acetaminophen (Tylenol) 1,000 mg 1X ONCE 04/01/19 23:30 04/01/19 23:31 DC 04/01/19 23:25 1,000 MG Diphtheria/ Tetanus/Acell Pertussis (Boostrix) 0.5 ml ONCE ONCE 04/01/19 23:30 04/01/19 23:31 DC 04/01/19 23:27 0.5 ML Allergies Allergies Allergies Coded Allergies Type Severity Reaction Last Updated Verified No Known Drug Allergies 08/21/15 No Physical Exam Physical Exam Constitutional: Well developed, well nourished, no acute distress, non-toxic appearance. [] HENT: Normocephalic, atraumatic, bilateral external ears normal, oropharynx moist, no oral exudates, nose normal. [] Eyes: PERRLA, EOMI, conjunctiva normal, no discharge. [] Neck: Normal range of motion, no tenderness, supple, no stridor. [] Cardiovascular:Heart rate regular rhythm, no murmur [] Lungs & Thorax: Bilateral breath sounds clear to auscultation [] Abdomen: Bowel sounds normal, soft, no tenderness, no masses, no pulsatile masses. [] Skin: Warm, dry, left forehead with bruising, there is a superficial laceration above the left eyelid approximately 2 cm long. Back: No tenderness, no CVA tenderness. [] Extremities: No tenderness, no cyanosis, no clubbing, ROM intact, no edema. [] Neurologic: Alert and oriented X 3, normal motor function, normal sensory function, no focal deficits noted. Cranial nerves II through XII intact Psychologic: Affect normal, judgement normal, mood normal. [] Current Patient Data Vital Signs Vital Signs Date Time Temp Pulse Resp B/P (MAP) Pulse Ox O2 Delivery O2 Flow Rate FiO2 04/01/19 22:00 97.8 86 18 163/78 (106) 95 Room Air 97.8 EKG EKG [] Radiology/Procedures Radiology/Procedures [] Course & Med Decision Making Course & Med Decision Making Pertinent Labs and Imaging studies reviewed. (See chart for details) This is a 78-year-old male patient who presents to the ED today to be evaluated after falling. CT of the head and maxillofacial and negative for any acute findings. Patient had superficial laceration on the left forehead that was closed with Dermabond by me. Tetanus updated. Wound care instructions and return precautions provided. Dragon Disclaimer Dragon Disclaimer This electronic medical record was generated, in whole or in part, using a voice recognition dictation system. Departure Departure Impression: Primary Impression: Fall from standing Additional Impressions: Forehead laceration Closed head injury Disposition: 01 HOME, SELF-CARE Condition: STABLE Referrals: DEMAR CHU Jr, MD (PCP) Follow-up with your doctor in 1 to2 weeks Patient Instructions: Head Injury, Adult, [id number], Laceration Care, Adult Additional Instructions: You were evaluated in the emergency room for a headache after falling. Please take Tylenol as needed for pain. Your CT of the head and face are negative for any acute findings. Apply Neosporin to the laceration and bruised parts of the face. Follow-up with your doctor in the course of this week. Come back to the ED at any point symptoms worsen. Problem Qualifiers Primary Impression: Fall from standing Encounter type: initial encounter Qualified Codes: W19.XXXA - Unspecified fall, initial encounter Additional Impressions: Forehead laceration Encounter type: initial encounter Qualified Codes: S01.81XA - Laceration without foreign body of other part of head, initial encounter Closed head injury Encounter type: initial encounter Qualified Codes: S09.90XA - Unspecified injury of head, initial encounter [employer] Apr 02, 2019 00:19
[2019-04-02 00:32] VITALS: BP 128/76
== END 2019-04-02 00:33 | disposition home or self-care (01) ==
LOC: ER 21:44
DX: S01.81XA Laceration without foreign body of other part of head, initial encounter (principal); R51 Headache; K21.9 Gastro-esophageal reflux disease without esophagitis; I10 Essential (primary) hypertension; I25.10 Atherosclerotic heart disease of native coronary artery without angina pectoris; Z95.1 Presence of aortocoronary bypass graft; W18.09XA Striking against other object with subsequent fall, initial encounter; Y93.01 Activity, walking, marching and hiking; Y92.89 Other specified places as the place of occurrence of the external cause; Y99.8 Other external cause status
CPT/HCPCS: 12011; 70450; 70486; 90471; 90715; 99284

== ENCOUNTER → 2021-01-23 | Outpatient (CLI) | payer MEDICARE ==
[~2021-01-23] MED LIST changes: -ALBU2.5V8 IH; +AMLO-186 PO; -AMLO5TAB10 PO; +OXYB5TAB10 PO; -OXYB5TAB7 PO; +PROVENTIL HFA6.7 GM IH
--- NOTE | 2021-01-23 16:45 | CARD ---
MR#: [id number] Date of Study: 01/23/2021 Ordering Physician: ELIO FINK, Referring Physician: ELIO FINK, Tech: Ira Garcia [facility] APPROVED REPORT EXAM: Two-dimensional and M-mode echocardiogram with Doppler and color Doppler. Other Information Quality : AverageTechnically LimitedHR: 74bpm Rhythm : NSRTechnically limited study due to body habitus, COPD INDICATION COPD Chest Pain RISK FACTORS Hypertension 2D DIMENSIONS RVDd3.6 (2.9-3.5cm)Left Atrium(2D)3.8 (1.6-4.0cm) IVSd1.4 (0.7-1.1cm)Aortic Root(2D)4.0 (2.0-3.7cm) LVDd4.7 (3.9-5.9cm)LVOT Diameter2.6 (1.8-2.4cm) PWd1.2 (0.7-1.1cm)LVDs2.9 (2.5-4.0cm) FS (%) 37.6 %SV68.2 ml LVEF(%)67.7 (>50%) Aortic Valve AoV Peak Darion.140.9cm/sAoV VTI32.2cm AO Peak GR.7.9mmHgLVOT Peak Darion.75.4cm/s AO Mean GR.4mmHgAVA (VMAX)2.91cm2 Mitral Valve MV E Jbjlmbgd42.5cm/sMV DECEL [id number] MV A Vubfqqda96.5cm/sE/A Ratio1.1 Tricuspid Valve TR P. Cwlhpsxg214ec/sTR Peak Gr.21mmHg LEFT VENTRICLE The left ventricle is normal size. There is mild concentric left ventricular hypertrophy. The left ve ntricular systolic function is normal and the ejection fraction is within normal range. Estimated eje ction fraction 55-60%. Septal motion suggestive of prior sternotomy. The mid to distal inferoseptum i s moderately hypokinetic. Otherwise, grossly normal wall motion. Technically difficult images. Tissue Doppler imaging reveals moderate left ventricular diastolic dysfunction. RIGHT VENTRICLE The right ventricle is normal size. There is normal right ventricular wall thickness. The right ventr icular systolic function is normal. ATRIA The left atrium size is normal. The right atrium size is normal. The interatrial septum is intact wit h no evidence for an atrial septal defect or patent foramen ovale as noted on 2-D or Doppler imaging. AORTIC VALVE Not well visualized. Doppler and Color Flow revealed no significant aortic regurgitation. There is no significant aortic valvular stenosis. MITRAL VALVE Not well visualized. There is no evidence of mitral valve prolapse. There is no mitral valve stenosis . Doppler and Color-flow revealed trace mitral regurgitation. TRICUSPID VALVE Not well visualized. Doppler and Color Flow revealed trace tricuspid regurgitation. Estimated PAP 31 mmHg. There is no tricuspid valve stenosis. PULMONIC VALVE Not visualiized. GREAT VESSELS The aortic root is mildly enlarged at 4.0 cm The IVC is normal in size and collapses >50% with inspir ation. PERICARDIAL EFFUSION There is no evidence of significant pericardial effusion. Critical Notification Critical Value: No <Conclusion> The left ventricular systolic function is normal and the ejection fraction is within normal range. E stimated ejection fraction 55-60%. Septal motion suggestive of prior sternotomy. The mid to distal inferoseptum is moderately hypokineti c. Otherwise, grossly normal wall motion. Technically difficult images. The aortic root is mildly enlarged at 4.0 cm Signed by : Elio Fink, Electronically Approved : 01/23/2021 16:45:05
== END ==
LOC: ECHO 10:44
PROVIDERS: ATTEND Internal Medicine Cardiovascular Disease
DX: I51.7 Cardiomegaly (principal); I25.10 Atherosclerotic heart disease of native coronary artery without angina pectoris; J44.9 Chronic obstructive pulmonary disease, unspecified
CPT/HCPCS: 93306

== ENCOUNTER 2021-04-03 06:59 | Observation (INO) | payer MEDICARE ==
[2021-04-03] VITALS (15 sets, daily range): BP systolic 127–165; BP diastolic 71–88
[~2021-04-03] VITALS: Ht 180.3 cm; Wt 76.5 kg
[2021-04-03 07:44] LABS: CALCIUM 8.7 mg/dL (8.5-10.1); CREATININE 1.1 mg/dL (0.7-1.3); GFR 64.4; POTASSIUM 4.1 mmol/L (3.5-5.1)
[2021-04-03 07:49] LABS: HEMATOCRIT 39.3 % (39.0-53.0); HEMOGLOBIN 12.9 g/dL (13.0-17.5); RED BLOOD COUNT 4.74 x10^6/uL (4.30-5.70); RED CELL DISTRIBUTION WIDTH 14.8 % (11.5-14.5); WHITE BLOOD COUNT 7.7 x10^3/uL (4.0-11.0)
[2021-04-03] MEDS ORDERED: ROSU20TA28 PO (07:49)
[2021-04-03] MEDS ORDERED: IODIXANOL 320 MG/ML 100 ML VIAL. ONE (07:54)
[2021-04-03] MEDS ORDERED: HEPARIN for ARTERIAL LINE 1,500 ML ONE (07:55)
[2021-04-03] MEDS ORDERED: LIDOCAINE 1% Multi-Dose 20 ML VIAL. ONE ×2 (07:55→10:32)
[2021-04-03 07:59] LABS: PROTHROMBIN TIME PATIENT 11.9 SEC (11.7-14.0)
[2021-04-03] MEDS ORDERED: fentaNYL PF VIAL 100 MCG/2 ML VIAL IV ONE (08:15)
[2021-04-03] MEDS ORDERED: LIDOCAINE 1% Multi-Dose 20 ML VIAL. INJ ONE (08:15)
[2021-04-03] MEDS ORDERED: MIDAZOLAM HCL/PF 2 MG/2 ML VIAL. IV ONE (08:15)
[2021-04-03] MEDS ORDERED: IODIXANOL 320 MG/ML 100 ML VIAL. IART ONE (08:15)
--- NOTE | 2021-04-03 10:28 | PDOC ---
MODERATE SEDATION ASSESSMENT RISKS/ALTERNATIVES Risks/Alternatives Risks and alternatives of this type of sedation and procedure discussed with: RISK/ALTERNATIVES: Patient H & P ON CHART H & P H & P on chart and reviewed for co-morbid conditions and appropriate labs. H&P ON CHART: Yes STATUS PREG STATUS ASSESSED: N/A MEDS/ALLERGIES REVIEWED Meds/Allergies Reviewed Medications and Allergies including time and route of recently administered narcotics and sedatives. MEDS/ALLERGIES REVIEWED: Yes ASA RATING ASA RATING: III AIRWAY ASSESSMENT Airway Assessment Airway patency, oral function limitations, presence of caps, crowns, dentures, partials, and ability to extend neck assessed. AIRWAY ASSESSMENT: Yes MALLAMPATI SCORE MALLAMPATI SCORE: II PRE-SEDATION ASSESSMENT PRE-SEDATION ASSESSMENT: Yes DRAKE FINK MD Apr 03, 2021 10:28
[2021-04-03] MEDS ORDERED: fentaNYL PF VIAL 100 MCG/2 ML VIAL ONE (10:35)
[2021-04-03] MEDS ORDERED: MIDAZOLAM HCL/PF 2 MG/2 ML VIAL. ONE (10:35)
[2021-04-03] MEDS ORDERED: HEPARIN for IV BOLUS 10,000 UNIT/10 ML VIAL. ONE (11:11)
[2021-04-03] MEDS ORDERED: HEPARIN for IV BOLUS 10,000 UNIT/10 ML VIAL. IV ONE (11:15)
[2021-04-03] MEDS ORDERED: NITROGLYCERIN 200 MCG/2 ML SYRINGE FOR CATH/VASC LAB. IART ONE (11:15)
[2021-04-03] MEDS ORDERED: NITROGLYCERIN 200 MCG/2 ML SYRINGE FOR CATH/VASC LAB. ONE (11:20)
[2021-04-03] MEDS ORDERED: CLOPIDOGREL BISULFATE 75 MG TABLET ONE (11:24)
[2021-04-03] MEDS ORDERED: CLOPIDOGREL BISULFATE 75 MG TABLET PO ONE (11:30)
--- NOTE | 2021-04-03 14:51 | NUR ---
Report called to CVPedro Alvares RN. Pt transferred to inpatient room via bed
[2021-04-03] MEDS: METOPROLOL TART IMMED RELEASE 50 MG TABLET. PO SCH (20:44)
[2021-04-03] MEDS ORDERED: ATORVASTATIN CALCIUM 40 MG TABLET. PO SCH (21:00)
[2021-04-04 03:50] VITALS: BP 137/70
[2021-04-04 07:00] VITALS: BP 150/88
[2021-04-04] MEDS ORDERED: PANTOPRAZOLE 40 MG TABLET.DR. PO SCH (07:30)
[2021-04-04] MEDS: METOPROLOL TART IMMED RELEASE 50 MG TABLET. PO SCH (08:45)
[2021-04-04] MEDS ORDERED: LOSARTAN POTASSIUM 50 MG TABLET. PO SCH (09:00)
[2021-04-04] MEDS ORDERED: ASPIRIN ENTERIC COATED 81 MG TABLET.DR. PO SCH (09:00)
[2021-04-04 11:00] VITALS: BP 142/81
--- NOTE | 2021-04-04 12:46 | NUR ---
SS following for discharge planning. SS reviewed pt chart and discussed with pt RN. Pt is from home and is currently on room air. Pt had heart cath on 04/03/2021. Discharge plan is to home when medically ready. SS will continue to follow for discharge planning.
[2021-04-04] MEDS ORDERED: CLOP75TA PO (14:00)
--- NOTE | 2021-04-04 14:01 | DISCH ---
DISCHARGE INSTRUCTIONS Condition on Discharge Condition on Discharge: Stable Activity After Discharge Activity Instructions for Disc: Activity as tolerated, Avoid exertion Bathing Instructions: Shower-keep dressing dry, No Tub Bath until see Lifting Instructions after Dis: No heavy lifting, No pulling or pushing Driving Instructions after Dis: Do not drive (for 5 days ) Weight Bearing Status after Di: Full weight bearing Diet after Discharge Diet after Discharge: Cardiac Wound Incision Care Wound/Incision Care: No wound care needed Contacting the [facility] after DC Call your doctor for: If your condition worsens Treatment/Equipment after DC Adaptive Equipment Issued: None Comment: venous access SHAQUILLE ALMEIDA APRN Apr 04, 2021 14:01
[2021-04-04] MEDS ORDERED: CLOPIDOGREL BISULFATE 75 MG TABLET PO ONE (14:45)
--- NOTE | 2021-04-04 15:00 | NUR ---
Discharge Note: GEMMA SHEPPARD Discharge instructions and discharge home medications reviewed with Patient and a copy given. All questions have been answered and understanding verbalized. The following instructions and handouts were given: discharge instructions, follow up appointment, new prescription for Plavix daily, stent card Discontinued lines and drains: Peripheral IV intact. Patient discharged to Home or Self Care with Family Member via Wheelchair
--- NOTE | 2021-04-04 15:59 | PDOC3 ---
Discharge Summary Visit Information Date of Admission: Apr 03, 2021 Date of Discharge: Apr 04, 2021 Admitting Diagnosis: CAD, HTN,, HLP Final Diagnosis CAD Hypertension Hyperlipidemia Brief Hospital Course Allergies Allergies Coded Allergies Type Severity Reaction Last Updated Verified No Known Drug Allergies 08/21/15 No Vital Signs Vital Signs Date Time Temp Pulse Resp B/P (MAP) Pulse Ox O2 Delivery O2 Flow Rate FiO2 04/04/21 11:00 98.2 72 18 142/81 (101) 94 Room Air 98.2 04/03/21 11:55 2.0 Lab Results Laboratory Tests Test 04/03/21 07:30 White Blood Count 7.7 x10^3/uL (4.0-11.0) Red Blood Count 4.74 x10^6/uL (4.30-5.70) Hemoglobin 12.9 g/dL (13.0-17.5) Hematocrit 39.3 % (39.0-53.0) Mean Corpuscular Volume 83 fL (79-100) Mean Corpuscular Hemoglobin 27 pg (25-35) Mean Corpuscular Hemoglobin Concent 33 g/dL (31-37) Red Cell Distribution Width 14.8 % (11.5-14.5) Platelet Count 253 x10^3/uL (140-400) Prothrombin Time 11.9 SEC (11.7-14.0) Prothromb Time International Ratio 0.9 (0.8-1.1) Sodium Level 143 mmol/L (136-145) Potassium Level 4.1 mmol/L (3.5-5.1) Chloride Level 110 mmol/L (98-107) Carbon Dioxide Level 23 mmol/L (21-32) Anion Gap 10 (6-14) Blood Urea Nitrogen 28 mg/dL (8-26) Creatinine 1.1 mg/dL (0.7-1.3) Estimated GFR (Cockcroft-Gault) 64.4 Glucose Level 122 mg/dL (70-99) Calcium Level 8.7 mg/dL (8.5-10.1) Brief Hospital Course Mr. Barksdale is a 80 old male, with a history of CAD s/p prior CABG, who presen gray with to the office secondary to exertional dyspnea and occasional chest pressure. Patient underwent right and left heart catheterization for further evaluation, which revealed normal biventricular filling pressures, no significant pulmonary hypertension, and normal cardiac output. Patient has severe pala three-vessel coronary artery disease with 2 out of 3 grafts patent. He underwent successful complex PCI of the saphenous vein graft to the obtuse marginal with implantation of a 3.5 x 26 mm Promus Elite drug-eluting stent. He tolerated procedure well and was monitored overnight without complication and was discharged home with DAPT (ASA and Plavix) in addition to routine oral meds. Discharge instructions were reviewed. Discharge Information Condition at Discharge: Stable Disposition/Orders: D/C to Home Scheduled Amlodipine Besylate (Amlodipine Besylate) 5 Mg Tablet, 5 MG PO DAILY, (Reported) Entered as Reported by: LICHA PERRY RN on 04/04/172049 Last Action: Continued on 04/03/212007 by BLANCA PRIETO Aspirin (Aspir 81) 81 Mg Tablet.dr, 1 TAB PO DAILY, #30 Ref 5 (Reported) Entered as Reported by: LICHA PERRY RN on 04/04/172049 Last Action: Continued on 04/03/212007 by BLANCA PRIETO Budesonide/Formoterol Fumarate (Symbicort 160-4.5 Mcg Inhaler) 10.2 Gm Hfa.aer.ad, 2 PUFF IH BID, #1 Ref 3 (Reported) Entered as Reported by: LICHA PERRY RN on 04/04/172049 Last Action: Reviewed on 04/03/21708 by Licha Tsai Clopidogrel Bisulfate (Clopidogrel) 75 Mg Tablet, 1 TAB PO DAILY for CAD, #90 Ref 1 Prescribed by: SHAQUILLE ALMEIDA APRN on 04/04/21 1400 Losartan Potassium (Losartan Potassium) 50 Mg Tablet, 50 MG PO DAILY, (Reported) Entered as Reported by: LICHA PERRY RN on 04/04/172049 Last Action: Continued on 04/03/212007 by BLANCA PRIETO Metoprolol Tartrate (Metoprolol Tartrate) 50 Mg Tablet, 50 MG PO BID for FOR HYPERTENSION, #60 Ref 0 (Reported) Entered as Reported by: LICHA PERRY RN on 04/04/172049 Last Action: Continued on 04/03/212007 by BLANCA PRIETO Omeprazole (Omeprazole) 20 Mg Tablet.dr, 1 TAB PO DAILY, #90 Ref 1 (Reported) Entered as Reported by: LICHA PERRY RN on 04/04/172049 Last Action: Converted on 04/03/212007 by BLANCA PRIETO Rosuvastatin Calcium (Rosuvastatin Calcium) 20 Mg Tablet, 20 MG PO DAILY for cholesterol, (Reported) Entered as Reported by: Licha Tsai on 04/03/21748 Last Action: Converted on 04/03/212007 by BLANCA PRIETO Scheduled PRN Albuterol Sulfate (Proventil Hfa Inhaler) 6.7 Gm Hfa.aer.ad, 1 PUFF IH PRN Q4HRS PRN for FOR ASTHMA, #1 Ref 0 Prescribed by: MARILEE BLAS MD on 10/08/17 1048 Last Action: Reviewed on 04/03/21748 by Licha Tsai Ipratropium/Albuterol Sulfate (Combivent Respimat Inhal) 4 Gm Aer.w.adap, 2 INH IH QID PRN for SHORTNESS OF BREATH, (Reported) Entered as Reported by: LICHA PERRY RN on 04/04/172049 Last Action: Reviewed on 04/03/21708 by Licha Tsai Patient Instructions Patient Instructions GENERAL INSTRUCTIONS: 1. Your dressing should be removed prior to leaving the hospital. 2. It is OK to shower the day after your procedure. 3. If you received stents, be sure to carry your stent information card with you in your wallet/purse at all times. 4. Call the office immediately at [phone] if you notice any fever or if there is redness, worsening tenderness/pain, increased bruising, or drainage from the puncture site. 5. Should you have bleeding from the site, lie down immediately & put pressure on the site. The pressure should be hard enough to stop the bleeding. Have the nearest person call 911. DO NOT try to drive to the ER with act rudolph bleeding. 6. If you notice a change in color, coolness to touch, or loss of feeling in the affected extremity, come to the emergency room. Please have someone drive you or call 911 if no one is available. DO NOT drive yourself. 7. If you normally take glucophage (metformin), please do not take this medicine for 48 hours following your procedure. 8. DO NOT STOP TAKING YOUR PLAVIX OR ASPIRIN UNLESS IT IS CLEARED BY A CLAIMS ANALYST OF YOUR [employer] WORKER AT OUR OFFICE. 9. QUIT SMOKING: the [place] [employer], [employer], & [employer] have cessation resources available on their websites 10. Please have someone available to drive you home from the hospital as you may be limited by sedation medications given during the procedure. Femoral (Groin) access: 1. Do no lifting, pushing, pulling, bending, stooping, or recurrent stair climbing for 3 days following your procedure. 2. Once past the first 3 days, do not do any HEAVY exertion or lifting for one week following the procedure. No gym workouts, running, lifting greater than a gallon of milk, etc 3. Do not submerge in bath or pool for one week. OK to drive 3 days following your procedure, but if going long distance, do not go alone & take hourly breaks to get out of car and walk around. Radial Artery (Wrist) access: 1. No pushing, pulling, lifting, typing, or anything that requires repetitive use/movement of the affected wrist for 3 days following your procedure. 2. OK to drive the day following your procedure. (This is because of effects of sedating medications.) Call the office at [phone] for any questions or concerns. Justicifation of Admission Dx: Justifications for Admission: Justification of Admission Dx: Yes Angina: [facility] Comments: Exertional dyspnea Chest pressure CAD s/p PCI/SHAQUILLE BEACH APRN Apr 04, 2021 15:59
--- NOTE | 2021-04-04 19:42 | CARD ---
MR#: [id number] Date of Study: 04/03/2021 Ordering Physician: DRAKE FINK, Referring Physician: DRAKE FINK, Tech: RT Colton(R) APPROVED REPORT Technologist: RT Colton(R) Nurse: Marcia Bradley RN Procedure(s) performed: FL TIME: 14.6 MINS DOSE: 95 GYCM2 CONTRAST: 128 ML MODERATE SEDATION: 70 MINS LHC, Coronary angiography, Bypass angiography PCI of the SVG to OM1 [facility] Clinical Frailty Scale [facility] Clinical Frailty Scale: Moderately Frail Heart Failure Heart Failure: Yes If Yes, Newly Diagnosed: Yes If Yes, HF Type: Diastolic If Yes, NYHA Class: Class II CASE TECHNIQUE IV conscious sedation was used throughout procedure with appropriate monitoring and was performed in the presence of a registered nurse who was an independent trained observer other than the physician p erforming the procedure. During this case, Fluoroscopy and low osmolar contrast were used for imaging . Specimen(s) Removed: N/A Estimated Blood loss: 20 cc's. PROCEDURE NARRATIVE The patient was brought electively to the cardiac catheterization lab. A timeout was performed confi rming the patient's name, date of , procedure, and site of procedure. All necessary personnel w ere wearing the appropriate protective equipment and radiation monitor devices. After explaining the risks and benefits of the procedure and alternatives, informed consent was obtained. (See nursing no cynthia for medications administered). The right groin was sterilely prepped and draped in the usual fas hion. The right groin was infiltrated with 20 mL of 2% lidocaine for subcutaneous anesthesia. A 6 F sheath was inserted into the right femoral artery without difficulty via the modified seldinger techn ique with an 18G needle and a J-tipped guidewire. Next, an 8Fr sheath was inserted in the right commo n femoral vein in similar fashion without difficulty. A PA catheter was then advanced through the right heart chambers, pressures and saturations were obta ined. Subsequently, right and left coronary angiography was performed using standard JR4 and JL4 diag nostic catheters. Left ventricular end diastolic pressure was obtained with a pigtail catheter and p ullback was performed after left ventriculography. HEMODYNAMICS: LVEDP 12 mm Hg AO: 170/79 *No gradient on LV to aortic pullback. PCWP: 12 mm Hg PA: 35/17/20 RV: 36/5/8 RA: 6 mm Hg Shivam: 5L/min PA saturation: 71.9% FA saturation: 98% LEFT VENTRICULOGRAM: Deferred due to known normal EF. CORONARY ANGIOGRAPHY: LM is a moderate caliber heavily diseased vessel with a diffuse 80% stenosis. LAD is a moderate caliber vessel with an ostial 100% occlusion. The distal vessel is seen to fill via patent HARRISON graft. LCX is a moderate caliber vessel with severe diffuse disease and proximal subtotal occlusion. The dis divya LCx and atrial branches give rise to collaterals to the RPDA. OM1 is a moderate caliber vessel seen to fill via a patent SVG. RCA is a moderate caliber dominat vessel with a proximal 100% occlusion. The distal vessel is seen to fill via left to right collaterals. BYPASS ANGIOGRAPHY: HARRISON to LAD - Widely patent without anastomotic stenosis. SVG to OM1/OM2 sequential graft has a mid body 70% stenosis. SVG to RCA is occluded proximally. INTERVENTIONAL TECHNIQUE: Heparin was used for anticoagulation. Through a 6 [place] LCB guide catheter the saphenous vein graft was engaged. A [employer] wire was used to traverse the mid body stenosis. The lesion was angioplast ied with a 2.5 x 20 mm balloon and then stented with a 3.5 x 26 mm Promus Elite drug-eluting stent. Final angiography demonstrated excellent stent expansion with DEBORA-3 flow in the vessel no evidence o f guide or wire related complications. At case completion the right groin sheath was removed and hemostasis was achieved with a Angio-Seal d evice. The right venous sheath was removed and hemostasis was achieved via manual compression. No acute complications noted. DEBORA Flow DEBORA Flow (Pre-Intervention): DEBORA-3 DEBORA Flow (Post-Intervention): DEBORA-3 Conclusion 1. Normal biventricular filling pressures 2. No significant pulmonary hypertension 3. Normal cardiac output 4. Severe [place] three-vessel coronary artery disease 5. 2 out of 3 grafts patent 6. Successful complex PCI of the saphenous vein graft to the obtuse marginal with implantation of a 3.5 x 26 mm Promus Elite drug-eluting stent. Recommendations 1. Aspirin 81 mg daily 2. Plavix 75 mg daily 3. Continue aggressive risk factor modification cardiac rehabilitation referral. Signed by : Drake Fink, Electronically Approved : 04/04/2021 19:42:12
[2021-04-05] MEDS ORDERED: CLOPIDOGREL BISULFATE 75 MG TABLET PO SCH (08:00)
== END 2021-04-04 14:55 | disposition home or self-care (01) ==
LOC: CCL 06:59 → 2 NORTH 11:55
PROVIDERS: ADMIT Internal Medicine Cardiovascular Disease; ATTEND Internal Medicine Cardiovascular Disease
DX: I25.10 Atherosclerotic heart disease of native coronary artery without angina pectoris (principal); I10 Essential (primary) hypertension; J45.909 Unspecified asthma, uncomplicated; E78.5 Hyperlipidemia, unspecified; Z79.02 Long term (current) use of antithrombotics/antiplatelets; Z79.51 Long term (current) use of inhaled steroids; Z79.82 Long term (current) use of aspirin; Z79.899 Other long term (current) drug therapy; Z95.1 Presence of aortocoronary bypass graft; Z98.61 Coronary angioplasty status
CPT/HCPCS: 36415; 80048; 85027; 85610; 92938; 93457; 96374; 96375; 99152; 99153; C1725; C1760; C1769; C1773; C1874; C1887; C1894; G0269; G0378; G0379; J1644; J2250; J3010; J3490; Q9967; 93456

== ENCOUNTER → 2021-05-17 | Outpatient (CLI) | payer MEDICARE ==
[~2021-05-17] MED LIST changes: +CLOP75TA PO; +ROSU20TA28 PO
--- NOTE | 2021-05-17 12:32 | KCIC ---
EXAM: DUAL ENERGY X-RAY ABSORPTIOMETRY (DEXA). HISTORY: Vertebral compression fracture. FINDINGS: The lowest measured T-score is -2.2 in the left hip, based on a bone mineral density of 0.6 95 g/cm^2. Refer to the worksheets for full detail. No comparison examinations are available. IMPRESSION: 1. Low bone mass. Bone mineral density yields a T-score between -1.0 and -2.5. Fracture risk is incre ased. 2. FRAX report: Not calculated. METHODOLOGY: Dual energy x-ray absorptiometry was performed to measure bone mineral density. The foll owing analysis is based on the 2019 Official Positions of the International Society for Clinical Dens itometry: Measurements of the hips and the average of L1-L4 are preferred. When the spine and/or hip cannot be feasibly measured or interpreted, or in the setting of hyperparathyroidism, distal radial bone minera l density may be measured. The lumbar spine T-score is based on the average bone mineral density of L1-L4. In the setting of art ifact or anatomic abnormality, some lumbar levels may be excluded, and the remaining levels used for calculation. A single lumbar level is not used for diagnosis, and if only a single level is available for assessment, another anatomic site will be used to assign a diagnosis. The hip T-score is based on the bone mineral density measurement of the femoral neck or total proxima l femur of either side, whichever is lowest. Bilateral mean values are not used for diagnosis. The forearm T-score is derived from 33% of the distal radius of the nondominant forearm. Electronically signed by: Alicia Foy MD (05/17/2021 12:30 PM) [id number]
== END ==
LOC: KCIC DEXA 10:47
PROVIDERS: ATTEND Family Medicine
DX: M85.89 Other specified disorders of bone density and structure, multiple sites (principal); M48.54XA Collapsed vertebra, not elsewhere classified, thoracic region, initial encounter for fracture
CPT/HCPCS: 77080

== ENCOUNTER 2021-05-18 08:25 | Outpatient (CLI) | payer MEDICARE ==
[~2021-05-18] VITALS: Ht 182.9 cm; Wt 167.0 kg
[2021-05-18] MEDS ORDERED: ceFAZolin SODIUM IV Push 1 GM VIAL. IVP ONE (08:45)
[2021-05-18 09:07] LABS: BASO # 0.1 x10^3/uL (0.0-0.2); BASO % 1 % (0-3); EOS # 0.2 x10^3/uL (0.0-0.7); EOS % 2 % (0-3); HEMATOCRIT 39.2 % (39.0-53.0); HEMOGLOBIN 13.3 g/dL (13.0-17.5); LYMPH # 2.1 x10^3/uL (1.0-4.8); LYMPH % 29 % (24-48); MEAN CORPUSCULAR HEMOGLOBIN 28 pg (25-35); MEAN CORPUSCULAR HGB CONC 34 g/dL (31-37); MEAN CORPUSCULAR VOLUME 82 fL (79-100); MONO # 0.7 x10^3/uL (0.0-1.1); MONO % 10 % (0-9); NEUT # 4.2 x10^3/uL (1.8-7.7); NEUT % 58 % (31-73); PLATELET COUNT 351 x10^3/uL (140-400); RED CELL DISTRIBUTION WIDTH 15.8 % (11.5-14.5); WHITE BLOOD COUNT 7.3 x10^3/uL (4.0-11.0)
[2021-05-18 09:42] VITALS: BP 112/65
--- NOTE | 2021-05-18 09:44 | NUR ---
Pt here for T7 vertebroplasty. Decision made to reschedule procedure because of plavix and aspirin not being held. Pt had new coronary stent placed 04/03/21. Dr Perez spoke to Dr Orosco and after discussing situation with patient, pt will hold plavix and aspirin and return 05/22/21 at 0700. Pt given instructions regarding medications and all questions answered. Pt ambulated out with son. ALICIA WESLEY
== END 2021-05-18 09:45 | disposition home or self-care (01) ==
LOC: INTRAD 08:25
PROVIDERS: ATTEND Family Medicine
DX: Z53.09 Procedure and treatment not carried out because of other contraindication (principal); M48.54XA Collapsed vertebra, not elsewhere classified, thoracic region, initial encounter for fracture; I10 Essential (primary) hypertension; E78.00 Pure hypercholesterolemia, unspecified; J44.9 Chronic obstructive pulmonary disease, unspecified; K21.9 Gastro-esophageal reflux disease without esophagitis; I25.10 Atherosclerotic heart disease of native coronary artery without angina pectoris; M19.90 Unspecified osteoarthritis, unspecified site; Z79.899 Other long term (current) drug therapy; Z90.49 Acquired absence of other specified parts of digestive tract; Z95.1 Presence of aortocoronary bypass graft; Z95.5 Presence of coronary angioplasty implant and graft; Z98.890 Other specified postprocedural states
CPT/HCPCS: 36415; 85025

== ENCOUNTER 2021-05-20 14:24 | Observation (INO) | payer MEDICARE ==
[~2021-05-20] VITALS: Ht 180.3 cm; Wt 142.2 kg
--- NOTE | 2021-05-20 14:47 | ED.ADGEN ---
Past Medical History Past Medical History: Bronchitis, CAD, GERD, Hypertension, Other Additional Past Medical Histor: NO KNOWN DX BUT USES INHALERS DAILY Past Surgical History: Cholecystectomy, Coronary Bypass Surgery, Tonsillectomy, Other Additional Past Surgical Histo: Shoulder Smoking Status: Never Smoker Alcohol Use: None Drug Use: None General Adult EDM: Chief Complaint: WEAKNESS/GENERALIZED HPI: HPI: Patient is a 80 year old male coming in for weakness for the past 7 to 10 days. Patient states he has not had an appetite for the past week and a half. Patient has noted that when he tries to make food he feels like he is weak and has to go sit down frequently. Patient has a history significant for COPD, but was never a smoker. Is a history of a three-vessel bypass. He had a stent placed in March, but has a back procedure planned and was told to discontinue his blood thinner as has not had it for the past 2 days. Patient states he had increased cough due to his COPD. Patient states his COPD got significantly worse after isac Covid 11 months ago, has since gotten both doses of his COVID-19 vaccine. Review of Systems: Review of Systems: All other systems within normal limits except for as noted in the HPI Current Medications: Current Medications Medications (Trade) Dose Ordered Sig/Chari Start Time Stop Time Status Last Admin Dose Admin Methylprednisolone Sodium Succinate (SOLU-Medrol 125MG VIAL) 125 mg 1X ONCE 05/20/21 15:30 05/20/21 15:31 DC 05/20/21 15:53 125 MG Sodium Chloride 1,000 ml @ 1,000 mls/hr 1X ONCE 05/20/21 15:30 05/20/21 16:29 DC 05/20/21 15:52 1,000 MLS/HR Allergies: Allergies: Allergies Coded Allergies Type Severity Reaction Last Updated Verified No Known Drug Allergies 08/21/15 No Physical Exam: PE: Constitutional: Well developed, well nourished, no acute distress, non-toxic appearance. [] HENT: Normocephalic, atraumatic, bilateral external ears normal, nose normal. [] Eyes: PERRLA, conjunctiva normal, no discharge. [] Neck: No rigidity, supple, no stridor. [] Cardiovascular: Regular rate and rhythm, brisk cap refill [] Lungs & Thorax: Non labored symmetric respirations, mild tachypnea or respiratory distress [] Abdomen: Soft, nondistended. Skin: Warm, dry, no erythema, no rash. Pale [] Back: Unremarkable Extremities: No deformities, range of motion grossly intact, no lower extremity edema [] Neurologic: Alert and oriented X 3, no focal deficits noted. [] Psychologic: Affect normal, judgement normal, mood normal. [] Current Patient Data: Labs: Laboratory Tests Test 05/20/21 15:10 05/20/21 15:15 05/20/21 15:49 White Blood Count 19.6 x10^3/uL (4.0-11.0) H Red Blood Count 5.08 x10^6/uL (4.30-5.70) Hemoglobin 13.9 g/dL (13.0-17.5) Hematocrit 41.9 % (39.0-53.0) Mean Corpuscular Volume 83 fL (79-100) Mean Corpuscular Hemoglobin 27 pg (25-35) Mean Corpuscular Hemoglobin Concent 33 g/dL (31-37) Red Cell Distribution Width 15.9 % (11.5-14.5) H Platelet Count 336 x10^3/uL (140-400) Neutrophils (%) (Auto) 82 % (31-73) H Lymphocytes (%) (Auto) 9 % (24-48) L Monocytes (%) (Auto) 8 % (0-9) Eosinophils (%) (Auto) 1 % (0-3) Basophils (%) (Auto) 1 % (0-3) Neutrophils # (Auto) 16.1 x10^3/uL (1.8-7.7) H Lymphocytes # (Auto) 1.7 x10^3/uL (1.0-4.8) Monocytes # (Auto) 1.5 x10^3/uL (0.0-1.1) H Eosinophils # (Auto) 0.1 x10^3/uL (0.0-0.7) Basophils # (Auto) 0.1 x10^3/uL (0.0-0.2) Segmented Neutrophils % 78 % (35-66) H Band Neutrophils % 2 % (0-9) Lymphocytes % 14 % (24-48) L Monocytes % 3 % (0-10) Eosinophils % 2 % (0-5) Basophils % 1 % (0-3) Platelet Estimate Adequate (ADEQUATE) D-Dimer (Silvia) 0.65 ug/mlFEU (0.00-0.50) H Sodium Level 142 mmol/L (136-145) Potassium Level 4.4 mmol/L (3.5-5.1) Chloride Level 104 mmol/L (98-107) Carbon Dioxide Level 24 mmol/L (21-32) Anion Gap 14 (6-14) Blood Urea Nitrogen 17 mg/dL (8-26) Creatinine 1.3 mg/dL (0.7-1.3) Estimated GFR (Cockcroft-Gault) 53.1 BUN/Creatinine Ratio 13 (6-20) Glucose Level 112 mg/dL (70-99) H Lactic Acid Level 1.8 mmol/L (0.4-2.0) Calcium Level 9.1 mg/dL (8.5-10.1) Total Bilirubin 0.9 mg/dL (0.2-1.0) Aspartate Amino Transferase (AST) 17 U/L (15-37) Alanine Aminotransferase (ALT) 21 U/L (16-63) Alkaline Phosphatase 167 U/L (46-116) H Troponin I Quantitative < 0.017 ng/mL (0.000-0.055) TZ-Klm-X-Type Natriuretic Peptide 679 pg/mL (0-449) H Total Protein 7.6 g/dL (6.4-8.2) Albumin 3.1 g/dL (3.4-5.0) L Albumin/Globulin Ratio 0.7 (1.0-1.7) L SARS-CoV-2 Antigen (Rapid) Negative (NEGATIVE) Urine Collection Type Unknown Urine Color Yellow Urine Clarity Clear Urine pH 5.5 (<5.0-8.0) Urine Specific [place] 1.015 (1.000-1.030) Urine Protein Negative mg/dL (NEG-TRACE) Urine Glucose (UA) Negative mg/dL (NEG) Urine Ketones (Stick) Trace mg/dL (NEG) Urine Blood Negative (NEG) Urine Nitrite Negative (NEG) Urine Bilirubin Negative (NEG) Urine Urobilinogen Dipstick 1.0 mg/dL (0.2 mg/dL) Urine Leukocyte Esterase Negative (NEG) Urine RBC 0 /HPF (0-2) Urine WBC 0 /HPF (0-4) Urine Bacteria 0 /HPF (0-FEW) Urine Mucus Mod /LPF POC Venous pH 7.34 (7.32-7.42) POC Venous pCO2 48 mmHg (41-51) POC Venous pO2 41 mmHg (20-40) H Venous Blood HCO3 26 mmol/L (24-28) POC Venous O2 Saturation (Nafisa) 73 % POC FiO2 21.0 Laboratory Tests 05/20/21 15:10 Laboratory Tests 05/20/21 15:10 Vital Signs: Vital Signs Date Time Temp Pulse Resp B/P (MAP) Pulse Ox O2 Delivery O2 Flow Rate FiO2 05/20/21 14:25 97.8 102 30 149/83 (81) 94 Room Air 97.8 EKG: EKG: Sinus rhythm, heart rate 90 bpm, left axis deviation, no sniffing change when compared to EKG from 2018, no STEMI [] Heart Score: C/O Chest Pain: No HEART Score for Chest Pain: HEART Score for Chest Pain Response (Comments) Value History Slighlty/Non-Suspicious 0 ECG Nonspecific Repolarizatio 1 Age > 65 2 Risk Factors >3 Risk Factors or Hx CAD 2 Troponin < Normal Limit 0 Total 5 Risk Factors: Risk Factors: DM, Current or recent (<one month) smoker, HTN, HLP, family history of CAD, obesity. Risk Scores: Score 0 - 3: 2.5% MACE over next 6 weeks - Discharge Home Score 4 - 6: 20.3% MACE over next 6 weeks - Admit for Clinical Observation Score 7 - 10: 72.7% MACE over next 6 weeks - Early Invasive Strategies Radiology/Procedures: Radiology/Procedures: [facility] [address] [place] [address] IMAGING REPORT Signed PATIENT: GEMMA SHEPPARD ACCOUNT: [id number] : 1940 LOCATION: ER AGE: 80 SEX: M EXAM STATUS: REG ER ORD. PHYSICIAN: TERRY BERMUDEZ MD REASON: copd PROCEDURE: CHEST PA & LATERAL Exam Date: 05/20/2021 4:20 PM XR CHEST 2V Indication: Reason: copd / Spl. Instructions: / History: . Comparison: November 08, 2017 FINDINGS/ IMPRESSION: The aorta is calcified. Median sternotomy wires are again seen. There are patchy opacities in the left lung base suspicious for developing infiltrate/pneumonia. Follow-up chest radiographs to resolution are recommended following treatment. Calcified granulomas are noted. The cardiac silhouette is not enlarged. There is no pleural effusion or pneumothorax. Electronically signed by: Aime Gentile MD (05/20/2021 4:44 PM) [facility] DICTATED and SIGNED BY: AIME GENTILE MD DATE: 05/20/21 [id number] [] Course & Med Decision Making: Course & Med Decision Making Pertinent Labs and Imaging studies reviewed. (See chart for details) Will admit to hospitalist for management of pneumonia in a patient with multiple comorbidities and 80 years of age. [] Dragon Disclaimer: Dragon Disclaimer: This electronic medical record was generated, in whole or in part, using a voice recognition dictation system. Departure Departure Impression: Primary Impression: COPD exacerbation Additional Impression: Pneumonia Disposition: ADMITTED INPATIENT Admitting Physician: TAMMIE Condition: STABLE Referrals: VAL RIVAS MD (PCP) Problem Qualifiers TERRY BERMUDEZ MD May 20, 2021 14:47
--- NOTE | 2021-05-20 15:03 | EKG ---
[facility] [address] [place] [address] Test Date: 2021-05-20 Test Time: 14:59:12 Pat Name: GEMMA SHEPPARD Department: Room: Gender: M [facility] Attendant: : 1940 Requested By: TERRY BERMUDEZ Order Number: [id number] Reading MD: Measurements Intervals [place] Rate: 92 P: 0 [place]: 156 QRS: -7 QRSD: 104 T: 17 QT: 348 QTc: 435 Interpretive Statements SINUS RHYTHM LEFTWARD AXIS QRS(T) CONTOUR ABNORMALITY CONSISTENT WITH ANTEROSEPTAL INFARCT PROBABLY OLD CONSISTENT WITH INFERIOR INFARCT PROBABLY OLD ABNORMAL ECG RI6.01 No previous ECG available for comparison
[2021-05-20 15:27] LABS: BILIRUBIN,URINE NEGATIVE (NEG); CLARITY,URINE CLEAR; COLOR,URINE YELLOW; NITRITE,URINE NEGATIVE (NEG); PH,URINE 5.5 (<5.0-8.0); PROTEIN,URINE NEGATIVE (NEG-TRACE)
[2021-05-20] MEDS ORDERED: IV NORMAL SALINE 1000ML BAG 1,000 ML IV ONE (15:30)
[2021-05-20] MEDS ORDERED: methylPREDNISolone SOD SUCC PF 125 MG/2 ML VIAL. IV ONE (15:30)
[2021-05-20 15:36] LABS: BACTERIA,URINE 0 /HPF (0-FEW); RBC,URINE 0 /HPF (0-2); WBC,URINE 0 /HPF (0-4)
[2021-05-20 15:37] LABS: BASO # 0.1 x10^3/uL (0.0-0.2); BASO % 1 % (0-3); EOS # 0.1 x10^3/uL (0.0-0.7); EOS % 1 % (0-3); HEMATOCRIT 41.9 % (39.0-53.0); HEMOGLOBIN 13.9 g/dL (13.0-17.5); LYMPH # 1.7 x10^3/uL (1.0-4.8); LYMPH % 9 % (24-48); MEAN CORPUSCULAR HEMOGLOBIN 27 pg (25-35); MEAN CORPUSCULAR HGB CONC 33 g/dL (31-37); MEAN CORPUSCULAR VOLUME 83 fL (79-100); MONO # 1.5 x10^3/uL (0.0-1.1); MONO % 8 % (0-9); NEUT # 16.1 x10^3/uL (1.8-7.7); NEUT % 82 % (31-73); PLATELET COUNT 336 x10^3/uL (140-400); RED BLOOD COUNT 5.08 x10^6/uL (4.30-5.70); RED CELL DISTRIBUTION WIDTH 15.9 % (11.5-14.5); WHITE BLOOD COUNT 19.6 x10^3/uL (4.0-11.0)
[2021-05-20 15:53] LABS: CALCIUM 9.1 mg/dL (8.5-10.1); CREATININE 1.3 mg/dL (0.7-1.3); GFR 53.1; POTASSIUM 4.4 mmol/L (3.5-5.1)
[2021-05-20 15:54] LABS: ISTAT BE VENOUS 0 mmol/L (0-3); ISTAT HCO3 VEN 26 mmol/L (24-28); ISTAT PCO2 VEN 48 mmHg (41-51); ISTAT PH VEN 7.34 (7.32-7.42); ISTAT PO2 VEN 41 mmHg (20-40); ISTAT SAT O2 VEN 73 %; ISTAT TCO2 VEN 27 mmol/L (21-32)
[2021-05-20 15:58] LABS: % BANDS 2 % (0-9); % BASOS 1 % (0-3); % EOS 2 % (0-5); % LYMPHS 14 % (24-48); % MONOS 3 % (0-10); % SEGS 78 % (35-66); PLT ESTIMATE ADEQUATE (ADEQUATE)
[2021-05-20 16:07] LABS: ALBUMIN 3.1 g/dL (3.4-5.0); ALBUMIN/GLOBULIN RATIO 0.7 (1.0-1.7); TOTAL BILIRUBIN 0.9 mg/dL (0.2-1.0); TOTAL PROTEIN 7.6 g/dL (6.4-8.2)
--- NOTE | 2021-05-20 16:46 | RAD ---
Exam Date: 05/20/2021 4:20 PM XR CHEST 2V Indication: Reason: copd / Spl. Instructions: / History: . Comparison: November 08, 2017 FINDINGS/ IMPRESSION: The aorta is calcified. Median sternotomy wires are again seen. There are patchy opacities in the l eft lung base suspicious for developing infiltrate/pneumonia. Follow-up chest radiographs to resolut ion are recommended following treatment. Calcified granulomas are noted. The cardiac silhouette is not enlarged. There is no pleural effusion or pneumothorax. Electronically signed by: Christopher Gentile MD (05/20/2021 4:44 PM) SHAE
[2021-05-20] MEDS ORDERED: ONDANSETRON PF 4 MG/2 ML VIAL. IVP PRN (17:30)
[2021-05-20] MEDS ORDERED: fentaNYL PF VIAL 100 MCG/2 ML VIAL IVP PRN (17:30)
[2021-05-20] MEDS ORDERED: ACETAMINOPHEN 325 MG TABLET. PO PRN (17:30)
[2021-05-20] MEDS: IV NORMAL SALINE 1000ML BAG 1,000 ML IV SCH (17:53)
[2021-05-20 18:23] LABS: MAGNESIUM 1.9 mg/dL (1.8-2.4); PHOSPHORUS 2.8 mg/dL (2.6-4.7)
[2021-05-20 19:00] VITALS: BP 140/90
--- NOTE | 2021-05-20 19:30 | NUR ---
The patient, GEMMA SHEPPARD, 80 y/o, M admitted by CHUY BROWN MD, was given written information regarding hospital policies, unit procedures and contact persons. POC, DIET, ISOLATION ADMISSION COMPLETED AND ASSESSMENT WELL. SEE NOTE ABOUT PLAVIX AND ASPIRIN. Valuables were checked and DOCUMENTED IN THE EMR LCRN.
[2021-05-20] MEDS: IPRATRPIUM/ALBUTEROL 0.5/2.5MG 3 ML NEBU. NEB SCH (20:00)
[2021-05-20 22:45] VITALS: BP 116/68
[2021-05-21 03:12] VITALS: BP 136/83
[2021-05-21] MEDS: IPRATRPIUM/ALBUTEROL 0.5/2.5MG 3 ML NEBU. NEB SCH ×3 (06:36→15:29)
[2021-05-21 07:00] VITALS: BP 137/79
--- NOTE | 2021-05-21 07:20 | NUR ---
PT SAID HIS PLAVIX ANS ASA ARE BEING HELD FOR HIS BACK SURGERY WHICH IS SUPPOSE TO BE 05/22. PT GOT A SENT IN MARCH, HAS TOTAL OF 3 NOW HE SAID. LCRN
--- NOTE | 2021-05-21 08:25 | PDOC1 ---
History and Physical Date of Service: DOS: DATE: 05/21/21 TIME: 08:19 Chief Complaint: Chief Complain: Generalized weakness History of Present Illness: HPI: 80 year old male coming in for weakness for the past 7 to 10 days. Patient states he has not had an appetite for the past week and a half. Patient has noted that when he tries to make food he feels like he is weak and has to go sit down frequently. Patient has a history significant for COPD, but was never a smoker. Is a history of a three-vessel bypass. He had a stent placed in March, but has a back procedure planned and was told to discontinue his blood thinner as has not had it for the past 2 days. Patient states he had increased cough due to his COPD. Patient states his COPD got significantly worse after contra cting Covid 11 months ago, has since gotten both doses of his COVID-19 vaccine. Past Medical/Surgical History: PMH/PSH: Past Medical History: Bronchitis, CAD, GERD, Hypertension, NO KNOWN DX BUT USES INHALERS DAILY Past Surgical History: Cholecystectomy, Coronary Bypass Surgery, Tonsillectomy, Shoulder Allergies: Allergies: Coded Allergies: No Known Drug Allergies (Unverified , 08/21/15) Family History: Family History: Heart disease in the father and diabetes mellitus in his sister and mother Social History: Social History: Smoking Status: Never Smoker Alcohol Use: None Drug Use: None Current Medications: Current Medications Current Medications Sodium Chloride 1,000 ml @ 1,000 mls/hr 1X ONCE IV Last administered on 05/20/21at 15:52; Start 05/20/21 at 15:30; Stop 05/20/21 at 16:29; Status DC Methylprednisolone Sodium Succinate (SOLU-Medrol 125MG VIAL) 125 mg 1X ONCE IV Last administered on 05/20/21at 15:53; Start 05/20/21 at 15:30; Stop 05/20/21 at 15:31; Status DC Levofloxacin/ Dextrose 150 ml @ 100 mls/hr 1X ONCE IV Last administered on 05/20/21at 17:53; Start 05/20/21 at 18:00; Stop 05/20/21 at 19:29; Status DC Ondansetron HCl (Zofran) 4 mg PRN Q8HRS PRN IVP NAUSEA/VOMITING; Start 05/20/21 at 17:30; Stop 05/21/21 at 17:29 Fentanyl Citrate (Fentanyl 2ml Vial) 50 mcg PRN Q1HR PRN IVP PAIN; Start 05/20/21 at 17:30; Stop 05/21/21 at 17:29 Sodium Chloride 1,000 ml @ 75 mls/hr [id number] IV Last administered on 05/20/21at 17:53; Start 05/20/21 at 18:00; Stop 05/21/21 at 17:59 Acetaminophen (Tylenol) 650 mg PRN Q4HRS PRN PO FEVER > 100.3'F; Start 05/20/21 at 17:30; Stop 05/21/21 at 17:29 Albuterol/ Ipratropium (Duoneb) 3 ml RTQID NEB ; Start 05/20/21 at 20:00; Stop 05/21/21 at 19:59 Active Scripts Active Clopidogrel (Clopidogrel Bisulfate) 75 Mg Tablet 1 Tab PO DAILY Proventil Hfa Inhaler (Albuterol Sulfate) 6.7 Gm Hfa.aer.ad 1 Puff IH PRN Q4HRS PRN Reported Rosuvastatin Calcium 20 Mg Tablet 20 Mg PO DAILY Aspir 81 (Aspirin) 81 Mg Tablet.dr 1 Tab PO DAILY Omeprazole 20 Mg Tablet.dr 1 Tab PO DAILY Metoprolol Tartrate 50 Mg Tablet 50 Mg PO BID Losartan Potassium 50 Mg Tablet 50 Mg PO DAILY Symbicort 160-4.5 Mcg Inhaler (Budesonide/Formoterol Fumarate) 10.2 Gm Hfa.aer.ad 2 Puff IH BID Amlodipine Besylate 5 Mg Tablet 5 Mg PO DAILY Combivent Respimat Inhal (Ipratropium/Albuterol Sulfate) 4 Gm Aer.w.adap 2 Inh IH QID PRN ROS: Review of Systems Review of System REVIEW OF SYSTEMS: GENERAL: Denies weakness SKIN: No bruising, hair changes or rashes. EYES: No blurred, double or loss of vision. NOSE AND THROAT: No history of nosebleeds, hoarseness or sore throat. HEART: No history of palpitations, chest pain or shortness of breath on exertion. LUNGS: Denies cough, hemoptysis, wheezing or shortness of breath. GASTROINTESTINAL: Denies changes in appetite, nausea, vomiting, diarrhea or constipation. GENITOURINARY: No history of frequency, urgency, hesitancy or nocturia. NEUROLOGIC: Denies history of numbness, tingling, or tremor. PSYCHIATRIC: No history of panic, anxiety or depression. ENDOCRINE: No history of heat or cold intolerance, polyuria or polydipsia. EXTREMITIES: Denies joint pain, pain on walking or stiffness. Physical Exam: Vital Signs: Vital Signs Date Time Temp Pulse Resp B/P (MAP) Pulse Ox O2 Delivery O2 Flow Rate FiO2 05/21/21 07:00 97.9 95 22 137/79 (98) 96 Room Air 97.9 Physcial Exam: GEN: No apparent distress. Alert and oriented HEENT: Normal cephalic, atraumatic, external auditory canals are patent EYES: Extraocular muscles are intact, pupil are equally round and reactive to light and accommodation MUSCULOSKELETAL: Well developed , well nourished, good range of motion ENDOCRINE: No thyromegaly was palpated LYMPHATICS: No cervical chain or axillary nodes were noted HEMATOPOIETIC: No bruising NECK: Supple, no JVD, no thyromegaly was noted LUNGS: Clear to auscultation in all lung cabral without rhonchi or wheezing HEART: RRR, S!, S2 present. Peripheral pulses intact, no obvious murmurs noted ABDOMEN: Soft, nontender. Positive bowel sounds, no organomegaly, normal bowel sounds EXTREMITIES: Without clubbing, cyanosis, or edema. Pedal pulses intact. Negative Homans sign NEUROLOGIC: Normal speech and tone. A&O x 3, moves all extremities, no obvious focal deficits PSYCHIATRIC: Normal affect, normal mood. Stable SKIN: No ulcerations or rashes, good skin turgor, no jaundice VASCULAR: Good capillary refill, neurovascular bundle appears to be intact Labs: Labs: Laboratory Tests Test 05/20/21 15:10 05/20/21 15:15 05/20/21 15:49 White Blood Count 19.6 x10^3/uL (4.0-11.0) Red Blood Count 5.08 x10^6/uL (4.30-5.70) Hemoglobin 13.9 g/dL (13.0-17.5) Hematocrit 41.9 % (39.0-53.0) Mean Corpuscular Volume 83 fL (79-100) Mean Corpuscular Hemoglobin 27 pg (25-35) Mean Corpuscular Hemoglobin Concent 33 g/dL (31-37) Red Cell Distribution Width 15.9 % (11.5-14.5) Platelet Count 336 x10^3/uL (140-400) Neutrophils (%) (Auto) 82 % (31-73) Lymphocytes (%) (Auto) 9 % (24-48) Monocytes (%) (Auto) 8 % (0-9) Eosinophils (%) (Auto) 1 % (0-3) Basophils (%) (Auto) 1 % (0-3) Neutrophils # (Auto) 16.1 x10^3/uL (1.8-7.7) Lymphocytes # (Auto) 1.7 x10^3/uL (1.0-4.8) Monocytes # (Auto) 1.5 x10^3/uL (0.0-1.1) Eosinophils # (Auto) 0.1 x10^3/uL (0.0-0.7) Basophils # (Auto) 0.1 x10^3/uL (0.0-0.2) Segmented Neutrophils % 78 % (35-66) Band Neutrophils % 2 % (0-9) Lymphocytes % 14 % (24-48) Monocytes % 3 % (0-10) Eosinophils % 2 % (0-5) Basophils % 1 % (0-3) Platelet Estimate Adequate (ADEQUATE) D-Dimer (Silvia) 0.65 ug/mlFEU (0.00-0.50) Sodium Level 142 mmol/L (136-145) Potassium Level 4.4 mmol/L (3.5-5.1) Chloride Level 104 mmol/L (98-107) Carbon Dioxide Level 24 mmol/L (21-32) Anion Gap 14 (6-14) Blood Urea Nitrogen 17 mg/dL (8-26) Creatinine 1.3 mg/dL (0.7-1.3) Estimated GFR (Cockcroft-Gault) 53.1 BUN/Creatinine Ratio 13 (6-20) Glucose Level 112 mg/dL (70-99) Lactic Acid Level 1.8 mmol/L (0.4-2.0) Calcium Level 9.1 mg/dL (8.5-10.1) Phosphorus Level 2.8 mg/dL (2.6-4.7) Magnesium Level 1.9 mg/dL (1.8-2.4) Total Bilirubin 0.9 mg/dL (0.2-1.0) Aspartate Amino Transf (AST/SGOT) 17 U/L (15-37) Alanine Aminotransferase (ALT/SGPT) 21 U/L (16-63) Alkaline Phosphatase 167 U/L (46-116) Troponin I Quantitative < 0.017 ng/mL (0.000-0.055) IA-Pys-S-Type Natriuretic Peptide 679 pg/mL (0-449) Total Protein 7.6 g/dL (6.4-8.2) Albumin 3.1 g/dL (3.4-5.0) Albumin/Globulin Ratio 0.7 (1.0-1.7) SARS-CoV-2 Antigen (Rapid) Negative (NEGATIVE) Urine Collection Type Unknown Urine Color Yellow Urine Clarity Clear Urine pH 5.5 (<5.0-8.0) Urine Specific [place] 1.015 (1.000-1.030) Urine Protein Negative mg/dL (NEG-TRACE) Urine Glucose (UA) Negative mg/dL (NEG) Urine Ketones (Stick) Trace mg/dL (NEG) Urine Blood Negative (NEG) Urine Nitrite Negative (NEG) Urine Bilirubin Negative (NEG) Urine Urobilinogen Dipstick 1.0 mg/dL (0.2 mg/dL) Urine Leukocyte Esterase Negative (NEG) Urine RBC 0 /HPF (0-2) Urine WBC 0 /HPF (0-4) Urine Bacteria 0 /HPF (0-FEW) Urine Mucus Mod /LPF Bedside Venous pH 7.34 (7.32-7.42) Bedside Venous pCO2 48 mmHg (41-51) Bedside Venous pO2 41 mmHg (20-40) Venous Blood HCO3 26 mmol/L (24-28) POC Venous O2 Saturation (Nafisa) 73 % Bedside FiO2 21.0 Laboratory Tests Test 05/20/21 15:10 05/20/21 15:15 05/20/21 15:49 White Blood Count 19.6 x10^3/uL (4.0-11.0) Red Blood Count 5.08 x10^6/uL (4.30-5.70) Hemoglobin 13.9 g/dL (13.0-17.5) Hematocrit 41.9 % (39.0-53.0) Mean Corpuscular Volume 83 fL (79-100) Mean Corpuscular Hemoglobin 27 pg (25-35) Mean Corpuscular Hemoglobin Concent 33 g/dL (31-37) Red Cell Distribution Width 15.9 % (11.5-14.5) Platelet Count 336 x10^3/uL (140-400) Neutrophils (%) (Auto) 82 % (31-73) Lymphocytes (%) (Auto) 9 % (24-48) Monocytes (%) (Auto) 8 % (0-9) Eosinophils (%) (Auto) 1 % (0-3) Basophils (%) (Auto) 1 % (0-3) Neutrophils # (Auto) 16.1 x10^3/uL (1.8-7.7) Lymphocytes # (Auto) 1.7 x10^3/uL (1.0-4.8) Monocytes # (Auto) 1.5 x10^3/uL (0.0-1.1) Eosinophils # (Auto) 0.1 x10^3/uL (0.0-0.7) Basophils # (Auto) 0.1 x10^3/uL (0.0-0.2) Segmented Neutrophils % 78 % (35-66) Band Neutrophils % 2 % (0-9) Lymphocytes % 14 % (24-48) Monocytes % 3 % (0-10) Eosinophils % 2 % (0-5) Basophils % 1 % (0-3) Platelet Estimate Adequate (ADEQUATE) D-Dimer (Silvia) 0.65 ug/mlFEU (0.00-0.50) Sodium Level 142 mmol/L (136-145) Potassium Level 4.4 mmol/L (3.5-5.1) Chloride Level 104 mmol/L (98-107) Carbon Dioxide Level 24 mmol/L (21-32) Anion Gap 14 (6-14) Blood Urea Nitrogen 17 mg/dL (8-26) Creatinine 1.3 mg/dL (0.7-1.3) Estimated GFR (Cockcroft-Gault) 53.1 BUN/Creatinine Ratio 13 (6-20) Glucose Level 112 mg/dL (70-99) Lactic Acid Level 1.8 mmol/L (0.4-2.0) Calcium Level 9.1 mg/dL (8.5-10.1) Phosphorus Level 2.8 mg/dL (2.6-4.7) Magnesium Level 1.9 mg/dL (1.8-2.4) Total Bilirubin 0.9 mg/dL (0.2-1.0) Aspartate Amino Transf (AST/SGOT) 17 U/L (15-37) Alanine Aminotransferase (ALT/SGPT) 21 U/L (16-63) Alkaline Phosphatase 167 U/L (46-116) Troponin I Quantitative < 0.017 ng/mL (0.000-0.055) FP-Ayq-U-Type Natriuretic Peptide 679 pg/mL (0-449) Total Protein 7.6 g/dL (6.4-8.2) Albumin 3.1 g/dL (3.4-5.0) Albumin/Globulin Ratio 0.7 (1.0-1.7) SARS-CoV-2 Antigen (Rapid) Negative (NEGATIVE) Urine Collection Type Unknown Urine Color Yellow Urine Clarity Clear Urine pH 5.5 (<5.0-8.0) Urine Specific [place] 1.015 (1.000-1.030) Urine Protein Negative mg/dL (NEG-TRACE) Urine Glucose (UA) Negative mg/dL (NEG) Urine Ketones (Stick) Trace mg/dL (NEG) Urine Blood Negative (NEG) Urine Nitrite Negative (NEG) Urine Bilirubin Negative (NEG) Urine Urobilinogen Dipstick 1.0 mg/dL (0.2 mg/dL) Urine Leukocyte Esterase Negative (NEG) Urine RBC 0 /HPF (0-2) Urine WBC 0 /HPF (0-4) Urine Bacteria 0 /HPF (0-FEW) Urine Mucus Mod /LPF Bedside Venous pH 7.34 (7.32-7.42) Bedside Venous pCO2 48 mmHg (41-51) Bedside Venous pO2 41 mmHg (20-40) Venous Blood HCO3 26 mmol/L (24-28) POC Venous O2 Saturation (Nafisa) 73 % Bedside FiO2 21.0 Images: Images PROCEDURE: CHEST PA & LATERAL Exam Date: 05/20/2021 4:20 PM XR CHEST 2V Indication: Reason: copd / Spl. Instructions: / History: . Comparison: November 08, 2017 FINDINGS/ IMPRESSION: The aorta is calcified. Median sternotomy wires are again seen. There are patchy opacities in the left lung base suspicious for developing infiltrate/ pneumonia. Follow-up chest radiographs to resolution are recommended following treatment. Calcified granulomas are noted. The cardiac silhouette is not enlarged. There is no pleural effusion or pneumothorax. Assessment/Plan Assessment/Plan Generalized weakness Left lower lobe pneumonia, community-acquired, possible gram-negative organisms Moderate protein malnutrition History of COPD History of CABG in March 2021 Covid vaccinated in October 2020 Admit to hospitalist service for further management Continue empiric IV antibiotics Pending blood and sputum cultures Pending MRSA screen and Legionella antigen and urine [] for DVT prophylaxis [] GI prophylaxis ADA diet CODE STATUS [] Discussed with RN and SW Disposition [] DPOA: [] In addition to my E/M visit, advance care planning done with A total time of 20 minutes was spent from 930 to 950 face to face in discussion with the patient regarding their goals of care, CODE STATUS. Justifications for Admission Other Justification KENNEDY JI MD May 21, 2021 08:24
[2021-05-21 10:43] VITALS: BP 117/71
[2021-05-21] MEDS: IV NORMAL SALINE 1000ML BAG 1,000 ML IV SCH (10:53)
[2021-05-21] MEDS ORDERED: METOPROLOL TART IMMED RELEASE 50 MG TABLET. PO SCH (13:00)
[2021-05-21] MEDS ORDERED: ATORVASTATIN CALCIUM 40 MG TABLET. PO SCH (13:00)
[2021-05-21] MEDS ORDERED: PRED20TA PO (13:57)
--- NOTE | 2021-05-21 13:58 | DISCH ---
DISCHARGE INSTRUCTIONS Condition on Discharge Condition on Discharge: Stable (Continue to hold her aspirin and Plavix) Activity After Discharge Activity Instructions for Disc: Resume previous activity, Other, see below Bathing Instructions: Shower-keep dressing dry, No Tub Bath until see Lifting Instructions after Dis: No heavy lifting, No pulling or pushing, Do not lift >10 pounds Driving Instructions after Dis: Do not drive today Weight Bearing Status after Di: As tolerated Diet after Discharge Diet after Discharge: Cardiac Diet Texture: Regular Wound Incision Care Wound/Incision Care: No wound care needed Checks after Discharge Checks after discharge: Check blood press - daily Contacting the after DC Call your doctor for: If your condition worsens Follow-Up Follow up with: PCP within 2 weeks of discharge Follow Up With: Dr. Mckeon for your kyphoplasty tomorrow Treatment/Equipment after DC Adaptive Equipment Issued: None KENNEDY JI MD May 21, 2021 13:58
[2021-05-21] MEDS ORDERED: LOSARTAN POTASSIUM 50 MG TABLET. PO SCH (14:00)
[2021-05-21 14:47] VITALS: BP 124/70
--- NOTE | 2021-05-21 16:00 | NUR ---
Discharge Note: GEMMA SHEPPARD [address] Discharge instructions and discharge home medications reviewed with Patient and a copy given. All questions have been answered and understanding verbalized. The following instructions and handouts were given: chest pain, COPD IV discontinued, no complications. Patient discharged to home with self care All belongings taken home with patient.
--- NOTE | 2021-05-27 15:05 | PDOC3 ---
[facility]-Discharge Summary Date of Admission: Date of Admission: May 21, 2021 Date of Discharge: Date of Discharge: May 21, 2021 Discharge Diagnosis: Discharge Diagnosis: Generalized weakness Left lower lobe pneumonia, community-acquired, possible gram-negative organisms Moderate protein malnutrition History of COPD History of CABG in March 2021 Covid vaccinated in October 2020 Hospital Course: Hospital Course: 80 year old male coming in for weakness for the past 7 to [address] ates he has not had an appetite for the past week and a half. Patient has noted that when he tries to make food he feels like he is weak and has to go sit down frequently. Patient has a history significant for COPD, but was never a smoker. Is a history of a three-vessel bypass. He had a stent placed in March, but has a back procedure planned and was told to discontinue his blood thinner as has not had it for the past 2 days. Patient states he had increased cough due to his COPD. Patient states his COPD got significantly worse after isac Covid 11 months ago, has since gotten both doses of his COVID-19 vaccine. Pt feels better after steroid treatment and breathing Tx. No fevers or WBC. Clinically improved. Will need to continue prednisone course and f/u with Dr Perez for schedule kyphoplasty scheduled for tomorrow. Continue to hold blood thinners. By day of discharge, pt was clinically stable and ready for discharge. Rest of hospital course was uneventful Disposition: Disposition/Orders: D/C to Home Activity: Activity: Resume previous activity Diet: Diet: Cardiac Medications: Home Meds Active Scripts Prednisone (PREDNISONE) 20 Mg Tablet, 1 TAB PO DAILY for copd, #5 TAB Prov:KENNEDY JI MD 05/21/21 Albuterol Sulfate (PROVENTIL HFA INHALER) 6.7 Gm Hfa.aer.ad, 1 PUFF IH PRN Q4HRS PRN for FOR ASTHMA, #1 INHALER 0 Refills Prov:MARILEE BLAS MD 10/08/17 Reported Medications Rosuvastatin Calcium (Rosuvastatin Calcium) 20 Mg Tablet, 20 MG PO DAILY for cholesterol, TAB 04/03/21 Omeprazole (OMEPRAZOLE) 20 Mg Tablet.dr, 1 TAB PO DAILY, #90 TAB 1 Refill 04/04/17 Metoprolol Tartrate (METOPROLOL TARTRATE) 50 Mg Tablet, 50 MG PO BID for FOR HYPERTENSION, #60 TAB 0 Refills 04/04/17 Losartan Potassium (LOSARTAN POTASSIUM) 50 Mg Tablet, 50 MG PO DAILY, TAB 04/04/17 Budesonide/Formoterol Fumarate (SYMBICORT 160-4.5 MCG INHALER) 10.2 Gm Hfa.aer.ad, 2 PUFF IH BID, #1 INHALER 3 Refills 04/04/17 Amlodipine Besylate (AMLODIPINE BESYLATE) 5 Mg Tablet, 5 MG PO DAILY, TAB 04/04/17 Ipratropium/Albuterol Sulfate (COMBIVENT RESPIMAT INHAL) 4 Gm Aer.w.adap, 2 INH IH QID PRN for SHORTNESS OF BREATH, INHALER 04/04/17 Discontinued Reported Medications Aspirin (ASPIR 81) 81 Mg Tablet.dr, 1 TAB PO DAILY, #30 TAB 5 Refills 04/04/17 Discontinued Scripts Clopidogrel Bisulfate (CLOPIDOGREL) 75 Mg Tablet, 1 TAB PO DAILY for CAD, #90 TAB 1 Refill Prov:SHAQUILLE ALMEIDA APRN 04/04/21 Scheduled Amlodipine Besylate (Amlodipine Besylate), 5 MG PO DAILY, (Reported) Budesonide/Formoterol Fumarate (Symbicort 160-4.5 Mcg Inhaler), 2 PUFF IH BID, (Reported) Losartan Potassium (Losartan Potassium), 50 MG PO DAILY, (Reported) Metoprolol Tartrate (Metoprolol Tartrate), 50 MG PO BID, (Reported) Omeprazole (Omeprazole), 1 TAB PO DAILY, (Reported) Prednisone (Prednisone), 1 TAB PO DAILY Rosuvastatin Calcium (Rosuvastatin Calcium), 20 MG PO DAILY, (Reported) Scheduled PRN Albuterol Sulfate (Proventil Hfa Inhaler), 1 PUFF IH PRN Q4HRS PRN for FOR ASTHMA Ipratropium/Albuterol Sulfate (Combivent Respimat Inhal), 2 INH IH QID PRN for SHORTNESS OF BREATH, (Reported) Discontinued Medications Aspirin (Aspir 81), 1 TAB PO DAILY, (Reported) Clopidogrel Bisulfate (Clopidogrel), 1 TAB PO DAILY Total Time: Total Time: Total time spent was 32 minutes in preparing scripts, discharge planning with SW and RN, and preparing this discharge summary. Justicifation of Admission Dx: Justifications for Admission: Justification of Admission Dx: Yes Angina: Symp at Rest KENNEDY JI MD May 27, 2021 15:05
== END 2021-05-21 15:55 | disposition home or self-care (01) ==
LOC: ER 14:24 → 6 SOUTH 17:00 → ER 18:15
PROVIDERS: ADMIT Family Medicine; ATTEND Family Medicine
DX: J44.1 Chronic obstructive pulmonary disease with (acute) exacerbation (principal); Z20.822 Contact with and (suspected) exposure to COVID-19; I10 Essential (primary) hypertension; I25.10 Atherosclerotic heart disease of native coronary artery without angina pectoris; J40 Bronchitis, not specified as acute or chronic; E66.9 Obesity, unspecified; I70.0 Atherosclerosis of aorta; J18.9 Pneumonia, unspecified organism; K21.9 Gastro-esophageal reflux disease without esophagitis; E44.0 Moderate protein-calorie malnutrition; R53.1 Weakness; Z95.1 Presence of aortocoronary bypass graft; Z98.890 Other specified postprocedural states; Z90.49 Acquired absence of other specified parts of digestive tract; Z83.3 Family history of diabetes mellitus
CPT/HCPCS: 36415; 71046; 80053; 81001; 82803; 83605; 83735; 83880; 84100; 84484; 85007; 85025; 85379; 87040; 87426; 93005; 96361; 96365; 96375; 99285; G0378; J1956; J2930; J7030; U0003; U0005; G0379

== ENCOUNTER 2021-05-22 06:55 | Outpatient (CLI) | payer MEDICARE ==
[~2021-05-22] VITALS: Ht 180.3 cm; Wt 75.9 kg
[~2021-05-22 06:55] MED LIST changes: +PRED20TA PO
[2021-05-22 07:26] VITALS: BP 124/77
[2021-05-22] MEDS ORDERED: LIDOCAINE WITH 8.4% SOD BICARB 3 ML DISP.SYRIN. ONE (08:20)
[2021-05-22] MEDS ORDERED: IOHEXOL 240 MG/ML 50ML VIAL. ONE (08:20)
--- NOTE | 2021-05-22 08:37 | NUR ---
Pt procedure cancelled and will need to be rescheduled after 10 days of quarantine; due to positive covid 19 SARS test on 05/21/21. Right hand IV dc'd, tip intact, and bandage applied. Pt educated on quarantine protocol, 10 days; the need for procedure reschedule, and that his plavix and Aspirin, need to be held for 5 days prior to rescheduled procedure.
[2021-05-22 08:38] LABS: PROTHROMBIN TIME PATIENT 13.4 SEC (11.7-14.0)
[2021-05-22 13:39] LABS: BASO % 0 % (0-3); EOS % 0 % (0-3); HEMATOCRIT 37.3 % (39.0-53.0); HEMOGLOBIN 12.3 g/dL (13.0-17.5); LYMPH # 1.4 x10^3/uL (1.0-4.8); LYMPH % 10 % (24-48); MEAN CORPUSCULAR HEMOGLOBIN 27 pg (25-35); MEAN CORPUSCULAR HGB CONC 33 g/dL (31-37); MEAN CORPUSCULAR VOLUME 83 fL (79-100); MONO # 0.8 x10^3/uL (0.0-1.1); MONO % 6 % (0-9); NEUT # 11.6 x10^3/uL (1.8-7.7); NEUT % 84 % (31-73); PLATELET COUNT 318 x10^3/uL (140-400); RED BLOOD COUNT 4.49 x10^6/uL (4.30-5.70); RED CELL DISTRIBUTION WIDTH 15.9 % (11.5-14.5); WHITE BLOOD COUNT 13.9 x10^3/uL (4.0-11.0)
== END 2021-05-22 08:46 | disposition home or self-care (01) ==
LOC: INTRAD 06:55
PROVIDERS: ATTEND Family Medicine
DX: Z53.8 Procedure and treatment not carried out for other reasons (principal); I25.10 Atherosclerotic heart disease of native coronary artery without angina pectoris; I10 Essential (primary) hypertension; E78.00 Pure hypercholesterolemia, unspecified; J44.9 Chronic obstructive pulmonary disease, unspecified; G47.30 Sleep apnea, unspecified; K21.9 Gastro-esophageal reflux disease without esophagitis; M19.90 Unspecified osteoarthritis, unspecified site; E11.9 Type 2 diabetes mellitus without complications; Z79.899 Other long term (current) drug therapy; Z98.890 Other specified postprocedural states
CPT/HCPCS: 36415; 85025; 85610